=== PATIENT | female | born 1940 | race African-American/Black ===

== ENCOUNTER 2017-11-19 14:12 | Emergency (ER) | payer MEDICARE, OTHER ==
[2017-11-19] MEDS ORDERED: ASPIRIN 81 MG TABLET, CHEWABLE PO ONE (16:02)
--- NOTE | 2017-11-19 16:02 | ER Document Report ---
ED Medical Screen (RME) - General Chief Complaint: Chest Congestion Stated Complaint: BODY PAIN Time Seen by Provider: 11/19/17 15:58 Mode of Arrival: Wheelchair Information source: Patient Notes: 77-year-old female presents with very vague complaints, patient notes cramping in her upper abdomen, feeling strange in her hands back with stiffness of her bilateral lower extremities. She denies any chest pain shortness of breath I have greeted and performed a rapid initial assessment of this patient. A comprehensive ED assessment and evaluation of the patient, analysis of test results and completion of the medical decision making process will be conducted by additional ED providers. PHYSICAL EXAMINATION: GENERAL: Well-appearing, well-nourished and in no acute distress. HEAD: Atraumatic, normocephalic. EYES: Pupils equal round extraocular movements intact, conjunctiva are normal. ENT: Nares patent NECK: Normal range of motion LUNGS: No respiratory distress patient baseline nasal cannula Musculoskeletal: Normal range of motion NEUROLOGICAL: Normal speech, normal gait. PSYCH: Normal mood, normal affect. SKIN: Warm, Dry, normal turgor, no rashes or lesions noted. TRAVEL OUTSIDE OF THE [place] IN LAST 30 DAYS: No - Related Data Allergies/Adverse Reactions: metronidazole [From Flagyl] Allergy (Verified 11/19/17 14:15) Metronidazole HCl [From Flagyl] Allergy (Verified 11/19/17 14:15) Past Medical History - Social History Frequency of alcohol use: Rare Drug Abuse: None - Past Medical History Cardiac Medical History: Reports: Hx Congestive Heart Failure, Hx Hypertension Pulmonary Medical History: Reports: Hx COPD, Hx Pneumonia Endocrine Medical History: Reports: Hx Diabetes Mellitus Type 1, Hx Diabetes Mellitus Type 2 Renal/ Medical History: Denies: Hx Peritoneal Dialysis Past Surgical History: Reports: Hx Appendectomy, Hx Cardiac Surgery - tumor left ventricle, Hx Hysterectomy - partial - Immunizations Hx Diphtheria, Pertussis, Tetanus Vaccination: No Physical Exam - Vital signs Vitals: Temp Pulse Resp BP Pulse Ox 99.0 F 104 H 18 149/88 H 97 11/19/17 14:17 11/19/17 14:17 11/19/17 14:17 11/19/17 14:17 11/19/17 14:17 Course - Vital Signs Vital signs: Temp Pulse Resp BP Pulse Ox 99.0 F 104 H 18 149/88 H 97 11/19/17 14:17 11/19/17 14:17 11/19/17 14:17 11/19/17 14:17 11/19/17 14:17
--- NOTE | 2017-11-19 16:36 | RADIOLOGY REPORT (SQ) ---
EXAM DESCRIPTION: CHEST SINGLE VIEW COMPLETED DATE/TIME: 11/19/2017 4:19 pm REASON FOR STUDY: sob COMPARISON: Chest films 02/28/2013, 02/20/2013, 03/19/2012 EXAM PARAMETERS: NUMBER OF VIEWS: One view. TECHNIQUE: Single frontal radiographic view of the chest acquired. RADIATION DOSE: NA LIMITATIONS: None. FINDINGS: LUNGS AND PLEURA: Bandlike atelectasis just above the right hemidiaphragm. No fluffy alveolar infiltrates worrisome for edema or pneumonia. No pleural effusion. No pneumothor ax. MEDIASTINUM AND HILAR STRUCTURES: No masses. Contour normal. HEART AND VASCULAR STRUCTURES: Heart normal in size. Normal vasculature. BONES: No acute findings. HARDWARE: Old sternal hardware from prior sternotomy. OTHER: No other significant finding. IMPRESSION: Right basilar atelectasis TECHNICAL DOCUMENTATION: JOB ID: [id number] [email or web address]- All Rights Reserved
[2017-11-19 16:59] LABS: ABSOLUTE BASOPHILS # (AUTO) 0.1 10^3/uL (0.0-0.2); ABSOLUTE EOSINOPHILS # (AUTO) 0.1 10^3/uL (0.0-0.6); ABSOLUTE MONOCYTES (AUTO) 0.6 10^3/uL (0.1-1.4); ABSOLUTE NEUT (AUTO) 3.8 10^3/uL (1.7-8.2); BASOPHILS % (AUTO) 1.2 % (0-2); EOSINOPHILS % (AUTO) 1.6 % (0-6); HEMATOCRIT 40.1 % (36.0-47.0); HEMOGLOBIN 13.1 g/dL (12.0-15.5); LYMPHOCYTES % (AUTO) 30.8 % (13-45); MEAN CORPUSCULAR HEMOGLOBIN 27.7 pg (27.0-33.4); MEAN CORPUSCULAR HGB CONC 32.8 g/dL (32.0-36.0); MEAN CORPUSCULAR VOLUME 85 fl (80-97); MONOCYTES % (AUTO) 8.4 % (3-13); PLATELET COUNT 252 10^3/uL (150-450); RED BLOOD COUNT 4.75 10^6/uL (3.72-5.28); RED CELL DISTRIBUTION WIDTH 14.1 % (11.5-14.0); TOTAL CELLS COUNTED % (AUTO) 100 %; WHITE BLOOD COUNT 6.6 10^3/uL (4.0-10.5)
[2017-11-19 17:22] LABS: ALANINE AMINOTRANSFERASE 21 U/L (9-52); ALBUMIN 4.4 g/dL (3.5-5.0); ALKALINE PHOSPHATASE 94 U/L (38-126); ANION GAP 9 (5-19); ASPARTATE AMINO TRANSFERASE 18 U/L (14-36); BILIRUBIN,DIRECT 0.1 mg/dL (0.0-0.4); BILIRUBIN,TOTAL 0.3 mg/dL (0.2-1.3); BLOOD UREA NITROGEN 26 mg/dL (7-20); CALCIUM 10.2 mg/dL (8.4-10.2); CARBON DIOXIDE 31 mmol/L (22-30); CHLORIDE 99 mmol/L (98-107); CREATINE KINASE 79 U/L (30-135); GLUCOSE 355 mg/dL (75-110); POTASSIUM 4.8 mmol/L (3.6-5.0); TOTAL PROTEIN 7.3 g/dL (6.3-8.2)
[2017-11-19 17:33] LABS: CREATINE KINASE MB 1.07 ng/mL (<4.55)
[2017-11-19 17:34] LABS: TROPONIN I < 0.012 ng/mL
--- NOTE | 2017-11-19 22:38 | EKG REPORT ---
SEVERITY:- OTHERWISE NORMAL ECG - SINUS TACHYCARDIA : Confirmed by: Juan Manuel Gallegos 19-Nov-2017 22:38:08
[2017-11-19 23:21] LABS: APPEARANCE,URINE CLEAR; BILIRUBIN,URINE NEGATIVE (NEGATIVE); COLOR,URINE YELLOW; GLUCOSE, URINE >=500 mg/dL (NEGATIVE); KETONES,URINE NEGATIVE (NEGATIVE); LEUKOCYTE ESTERASE,URINE NEGATIVE (NEGATIVE); NITRITE,URINE NEGATIVE (NEGATIVE); PROTEIN,URINE 30 mg/dL (NEGATIVE); UROBILINOGEN,URINE NEGATIVE mg/dL (<2.0)
--- NOTE | 2017-11-19 23:39 | ER Document Report ---
ED General - General Chief Complaint: Chest Congestion Stated Complaint: BODY PAIN Time Seen by Provider: 11/19/17 15:58 Mode of Arrival: Wheelchair Information source: Patient TRAVEL OUTSIDE OF THE [place] IN LAST 30 DAYS: No - HPI Patient complains to provider of: body aches Onset: Just prior to arrival Onset/Duration: Gradual Quality of pain: No pain Associated symptoms: None Exacerbated by: Denies Similar symptoms previously: No - Related Data Allergies/Adverse Reactions: metronidazole [From Flagyl] Allergy (Verified 11/19/17 14:15) Metronidazole HCl [From Flagyl] Allergy (Verified 11/19/17 14:15) Past Medical History - General Information source: Patient, [facility] - Social History Smoking Status: Never Smoker Frequency of alcohol use: Rare Drug Abuse: None Lives with: Family - son Family History: Reviewed & Not Pertinent Patient has suicidal ideation: No Patient has homicidal ideation: No - Past Medical History Cardiac Medical History: Reports: Hx Congestive Heart Failure, Hx Hypertension Pulmonary Medical History: Reports: Hx COPD, Hx Pneumonia Endocrine Medical History: Reports: Hx Diabetes Mellitus Type 1, Hx Diabetes Mellitus Type 2 Renal/ Medical History: Denies: Hx Peritoneal Dialysis Malignancy Medical History: Reports: None Musculoskeltal Medical History: Reports None Past Surgical History: Reports: Hx Appendectomy, Hx Cardiac Surgery - tumor left ventricle, Hx Hysterectomy - Immunizations Hx Diphtheria, Pertussis, Tetanus Vaccination: No Hx Pneumococcal Vaccination: 10/12/05 Review of Systems - Review of Systems Constitutional: Chills EENT: No symptoms reported Cardiovascular: No symptoms reported Respiratory: No symptoms reported Gastrointestinal: Constipation Genitourinary: No symptoms reported Female Genitourinary: No symptoms reported Musculoskeletal: No symptoms reported Skin: No symptoms reported Hematologic/Lymphatic: No symptoms reported Neurological/Psychological: No symptoms reported Physical Exam - Vital signs Vitals: Temp Pulse Resp BP Pulse Ox 99.0 F 104 H 18 149/88 H 97 11/19/17 14:17 11/19/17 14:17 11/19/17 14:17 11/19/17 14:17 11/19/17 14:17 - Notes Notes: PHYSICAL EXAMINATION: GENERAL: Well-appearing, well-nourished and in no acute distress. HEAD: Atraumatic, normocephalic. EYES: Pupils equal round and reactive to light, extraocular movements intact, conjunctiva are normal. ENT: Nares patent, oropharynx clear without exudates. Moist mucous membranes. NECK: Normal range of motion, supple without lymphadenopathy LUNGS: Breath sounds clear to auscultation bilaterally and equal. No wheezes rales or rhonchi. HEART: Regular rate and rhythm without murmurs ABDOMEN: Soft, nontender, nondistended abdomen. No guarding, no rebound. No masses appreciated. + BS. Female : deferred Musculoskeletal: Normal range of motion, +1 pitting edema. No cyanosis. NEUROLOGICAL: Cranial nerves grossly intact. Normal speech. Normal sensory, motor exams. PSYCH: Normal mood, normal affect. SKIN: Warm, Dry, normal turgor, no rashes or lesions noted. Course - Re-evaluation Re-evalutation: 11/19/17 23:37 Labs- All tests 24 hr 11/19/17 11/19/17 11/19/17 16:37 16:37 16:37 WBC 6.6 RBC 4.75 Hgb 13.1 Hct 40.1 MCV 85 MCH 27.7 MCHC 32.8 RDW 14.1 H Plt Count 252 Seg Neutrophils % 58.0 Lymphocytes % 30.8 Monocytes % 8.4 Eosinophils % 1.6 Basophils % 1.2 Absolute Neutrophils 3.8 Absolute Lymphocytes 2.0 Absolute Monocytes 0.6 Absolute Eosinophils 0.1 Absolute Basophils 0.1 Sodium 139.0 Potassium 4.8 Chloride 99 Carbon Dioxide 31 H Anion Gap 9 BUN 26 H Creatinine 1.30 H Est GFR ( Amer) 48 L Est GFR (Non-Af Amer) 40 L Glucose 355 H POC Glucose Calcium 10.2 Total Bilirubin 0.3 Direct Bilirubin 0.1 Neonat Total Bilirubin Not Reportable Neonat Direct Bilirubin Not Reportable Neonat Indirect Bili Not Reportable AST 18 ALT 21 Alkaline Phosphatase 94 Creatine Kinase 79 CK-MB (CK-2) 1.07 Troponin I < 0.012 Total Protein 7.3 Albumin 4.4 Urine Color Urine Appearance Urine pH Ur Specific [place] Urine Protein Urine Glucose (UA) Urine Ketones Urine Blood Urine Nitrite Urine Bilirubin Urine Urobilinogen Ur Leukocyte Esterase Urine WBC (Auto) Urine RBC (Auto) U Hyaline Cast (Auto) Urine Bacteria (Auto) Squamous Epi Cells Auto Urine Mucus (Auto) Urine Ascorbic Acid 11/19/17 11/19/17 11/19/17 20:34 22:14 22:32 WBC RBC Hgb Hct MCV MCH MCHC RDW Plt Count Seg Neutrophils % Lymphocytes % Monocytes % Eosinophils % Basophils % Absolute Neutrophils Absolute Lymphocytes Absolute Monocytes Absolute Eosinophils Absolute Basophils Sodium Potassium Chloride Carbon Dioxide Anion Gap BUN Creatinine Est GFR ( Amer) Est GFR (Non-Af Amer) Glucose POC Glucose 293 H Calcium Total Bilirubin Direct Bilirubin Neonat Total Bilirubin Neonat Direct Bilirubin Neonat Indirect Bili AST ALT Alkaline Phosphatase Creatine Kinase CK-MB (CK-2) Troponin I 0.014 Total Protein Albumin Urine Color YELLOW Urine Appearance CLEAR Urine pH 5.0 Ur Specific [place] 1.020 Urine Protein 30 H Urine Glucose (UA) >=500 H Urine Ketones NEGATIVE Urine Blood NEGATIVE Urine Nitrite NEGATIVE Urine Bilirubin NEGATIVE Urine Urobilinogen NEGATIVE Ur Leukocyte Esterase NEGATIVE Urine WBC (Auto) 0 Urine RBC (Auto) 1 U Hyaline Cast (Auto) 7 Urine Bacteria (Auto) TRACE Squamous Epi Cells Auto 5 Urine Mucus (Auto) RARE Urine Ascorbic Acid NEGATIVE Chest X-Ray 11/19/17 16:02 IMPRESSION: Right basilar atelectasis - Vital Signs Vital signs: Temp Pulse Resp BP Pulse Ox 97.7 F 99 18 127/86 H 100 11/19/17 20:38 11/19/17 20:38 11/19/17 14:17 11/19/17 20:38 11/19/17 20:38 - Laboratory Result Diagrams: 11/19/17 16:37 11/19/17 16:37 Laboratory results interpreted by me: 11/19/17 11/19/17 11/19/17 16:37 16:37 22:14 RDW 14.1 H Carbon Dioxide 31 H BUN 26 H Creatinine 1.30 H Est GFR ( Amer) 48 L Est GFR (Non-Af Amer) 40 L Glucose 355 H POC Glucose 293 H Urine Protein Urine Glucose (UA) 11/19/17 22:32 RDW Carbon Dioxide BUN Creatinine Est GFR ( Amer) Est GFR (Non-Af Amer) Glucose POC Glucose Urine Protein 30 H Urine Glucose (UA) >=500 H - EKG Interpretation by Me EKG shows normal: Sinus rhythm Rate: Tachycardia - 106 When compared to previous EKG there are: No significant change Discharge - Discharge Clinical Impression: Uncontrolled diabetes mellitus Condition: Stable Disposition: HOME, SELF-CARE Instructions: Diabetes ([facility]) Additional Instructions: Follow up with your physician tomorrow for further care or return to the ED IMMEDIATELY if symptoms worsen or new concerns occur. If you cannot afford to follow up with your primary care physician a list of low cost clinics have been provided at the end of your discharge papers as well.
[2017-11-20 01:49] VITALS: BP 151/73
== END 2017-11-20 01:49 | disposition home or self-care (01) ==
LOC: ER 14:12
DX: E11.8 Type 2 diabetes mellitus with unspecified complications (principal); R09.89 Other specified symptoms and signs involving the circulatory and respiratory systems; R68.83 Chills (without fever); K59.00 Constipation, unspecified; R52 Pain, unspecified; I10 Essential (primary) hypertension; J44.9 Chronic obstructive pulmonary disease, unspecified; R00.0 Tachycardia, unspecified; J98.11 Atelectasis; Z88.1 Allergy status to other antibiotic agents
CPT/HCPCS: 93005; 99284; 36415; 82553; 82962; 82550; 85025; 80053; 81001; 84484; 71045; 93010; A9270

== ENCOUNTER 2018-12-25 21:36 | Observation (INO) | payer MEDICARE, OTHER ==
[2018-12-25] MEDS ORDERED: ASPIRIN 81 MG TABLET, CHEWABLE PO ONE (22:39)
--- NOTE | 2018-12-25 22:41 | ER Document Report ---
ED General - General Chief Complaint: Numbness Stated Complaint: NUMBNESS Time Seen by Provider: 12/25/18 22:30 Notes: Patient is a 78-year-old female that comes to the emergency department for chief complaint of an episode that happened 30 minutes prior to arrival where she was sitting and watching television and suddenly started feeling a heaviness in her chest and in both legs, she states they almost felt "numb" like with a "or not getting enough blood". She also states that there was a discomfort in her chest. Symptoms were equal in both legs. She denies any symptoms in her arms, she denies focal weakness, she denies tingling sensation. She denies headache, visual changes, vomiting, fever/chills, abdominal pain. She states she still has a vague discomfort over her chest but her legs feel better. She denies history of IA, she states she was told she had a TIA once in the past, she is on aspirin, she is medicated for diabetes, hypertension, COPD. She lives at home with her family, uses a walker to get around. TRAVEL OUTSIDE OF THE [place] IN LAST 30 DAYS: No - Related Data Allergies/Adverse Reactions: metronidazole [From Flagyl] Allergy (Verified 12/25/18 21:49) Metronidazole HCl [From Flagyl] Allergy (Verified 12/25/18 21:49) Past Medical History - General Information source: Patient - Social History Smoking Status: Never Smoker Frequency of alcohol use: None Drug Abuse: None Lives with: Family Family History: Reviewed & Not Pertinent - Past Medical History Cardiac Medical History: Reports: Hx Congestive Heart Failure, Hx Hypertension Pulmonary Medical History: Reports: Hx COPD, Hx Pneumonia Endocrine Medical History: Reports: Hx Diabetes Mellitus Type 1, Hx Diabetes Mellitus Type 2 Renal/ Medical History: Denies: Hx Peritoneal Dialysis Past Surgical History: Reports: Hx Appendectomy, Hx Cardiac Surgery - tumor left ventricle, Hx Hysterectomy - Immunizations Hx Diphtheria, Pertussis, Tetanus Vaccination: No Hx Pneumococcal Vaccination: 10/12/05 Review of Systems - Review of Systems Constitutional: See HPI EENT: No symptoms reported Cardiovascular: See HPI Respiratory: No symptoms reported Gastrointestinal: No symptoms reported Genitourinary: No symptoms reported Female Genitourinary: No symptoms reported Musculoskeletal: No symptoms reported Skin: No symptoms reported Hematologic/Lymphatic: No symptoms reported Neurological/Psychological: See HPI Physical Exam - Vital signs Vitals: Resp Pulse Ox 18 97 12/25/18 22:10 12/25/18 22:10 - Notes Notes: GENERAL: Alert, interacts well. No acute distress. HEAD: Normocephalic, atraumatic. EYES: Pupils equal, round, and reactive to light. Extraocular movements intact. ENT: Oral mucosa moist, tongue midline. Oropharynx unremarkable. Airway patent. Nares patent, no nasal septal hematoma, TM's intact. NECK: Full range of motion. Supple. Trachea midline. LUNGS: Clear to auscultation bilaterally, no wheezes, rales, or rhonchi. No respiratory distress. HEART: Regular rate and rhythm. No murmur ABDOMEN: Soft, non-tender. Non-distended. Bowel sounds present in all 4 quadrants. GENITOURINARY: Deferred EXTREMITIES: Moves all 4 extremities spontaneously. No edema, normal radial and dorsalis pedis pulses bilaterally. No cyanosis. BACK: no cervical, thoracic, lumbar midline tenderness. No saddle anesthesia, normal distal neurovascular exam. NEUROLOGICAL: Alert and oriented x3. Normal speech. [cranial nerves II through XII grossly intact]. PSYCH: Normal affect, normal mood. SKIN: Warm, dry, normal turgor. No rashes or lesions noted. Course - Re-evaluation Re-evalutation: EKG shows sinus rhythm at a rate of 82, no T wave inversions or ST segment changes in consecutive leads. PACs are present. First-degree block present with a W[place] of 220. QTC is 468. Chest x-ray is unremarkable. Troponin is negative. CBC and chemistry unremarkable. Patient with vague weakness complaints in her legs but she has no neurological deficits on examination and no current complaints of weakness in her legs. On reevaluation after receiving aspirin her chest pain is resolved. Discussed with patient. Because of her advanced age, multiple comorbidities, and chest pain will discuss with hospitalist for cardiac rule out. Patient's blood pressure is trending upwards, however she is not currently in any pain. She denies headache. I spoke with Dr. Carbone, on-call for Dr. Myers, patient's provider. He will admit to telemetry, recommends treatment of blood pressure now. Given dose of labetalol. - Vital Signs Vital signs: Temp Pulse Resp BP Pulse Ox 97.8 F 70 19 150/72 H 99 12/26/18 05:13 12/26/18 05:13 12/26/18 05:13 12/26/18 05:13 12/26/18 05:13 - Laboratory Result Diagrams: 12/25/18 22:45 12/25/18 22:45 Laboratory results interpreted by me: 12/25/18 12/25/18 22:45 22:45 RDW 14.7 H Carbon Dioxide 31 H BUN 38 H Creatinine 1.32 H Est GFR ( Amer) 47 L Est GFR (Non-Af Amer) 39 L Glucose 169 H Discharge - Discharge Clinical Impression: Uncontrolled hypertension Chest pain Qualifiers: Chest pain type: unspecified Qualified Code(s): R07.9 - Chest pain, unspecified Condition: Stable Disposition: ADMITTED OBSERVATION Admitting Provider: Raf Myers Unit Admitted: Telemetry
[2018-12-25 22:56] LABS: ABSOLUTE EOSINOPHILS # (AUTO) 0.1 10^3/uL (0.0-0.6); ABSOLUTE LYMPHOCYTES (AUTO) 2.2 10^3/uL (0.5-4.7); ABSOLUTE MONOCYTES (AUTO) 0.7 10^3/uL (0.1-1.4); ABSOLUTE NEUT (AUTO) 3.4 10^3/uL (1.7-8.2); BASOPHILS % (AUTO) 0.2 % (0-2); EOSINOPHILS % (AUTO) 1.2 % (0-6); HEMATOCRIT 41.6 % (36.0-47.0); HEMOGLOBIN 13.8 g/dL (12.0-15.5); LYMPHOCYTES % (AUTO) 34.6 % (13-45); MEAN CORPUSCULAR HGB CONC 33.1 g/dL (32.0-36.0); MEAN CORPUSCULAR VOLUME 85 fl (80-97); MONOCYTES % (AUTO) 10.3 % (3-13); PLATELET COUNT 230 10^3/uL (150-450); RED BLOOD COUNT 4.91 10^6/uL (3.72-5.28); RED CELL DISTRIBUTION WIDTH 14.7 % (11.5-14.0); SEGMENTED NEUTROPHILS % (AUTO) 53.7 % (42-78); TOTAL CELLS COUNTED % (AUTO) 100 %; WHITE BLOOD COUNT 6.4 10^3/uL (4.0-10.5)
[2018-12-25 23:10] LABS: ALANINE AMINOTRANSFERASE 19 U/L (9-52); ALBUMIN 3.8 g/dL (3.5-5.0); ALKALINE PHOSPHATASE 90 U/L (38-126); ANION GAP 8 (5-19); ASPARTATE AMINO TRANSFERASE 17 U/L (14-36); BILIRUBIN,DIRECT 0.3 mg/dL (0.0-0.4); BILIRUBIN,TOTAL 0.3 mg/dL (0.2-1.3); BLOOD UREA NITROGEN 38 mg/dL (7-20); CALCIUM 9.5 mg/dL (8.4-10.2); CARBON DIOXIDE 31 mmol/L (22-30); CHLORIDE 100 mmol/L (98-107); GLUCOSE 169 mg/dL (75-110); POTASSIUM 4.1 mmol/L (3.6-5.0); SODIUM 139.2 mmol/L (137-145); TOTAL PROTEIN 7.1 g/dL (6.3-8.2)
--- NOTE | 2018-12-26 00:01 | RADIOLOGY REPORT (SQ) ---
EXAM DESCRIPTION: XR CHEST 1 VIEW COMPLETED DATE/TME: 12/25/2018 22:39 CLINICAL HISTORY: 78 years, Female, chest pain Comparison: None FINDINGS: No focal lung consolidation other than right basilar atelectasis. Lung volumes are decreased. No pleural effusion. No pneumothorax. Cardiac and mediastinal silhouette is unremarkable. No acute osseous abnormality. Soft tissues are unremarkable. IMPRESSION: No acute findings. No focal lung consolidation.
[2018-12-26] MEDS ORDERED: LABETALOL HCL INJ 20 MG/4 ML DISP.SYRIN IV ONE ×2 (00:34→02:01)
[2018-12-26] MEDS ORDERED: ACETAMINOPHEN 325 MG TABLET PO PRN (00:35)
[2018-12-26] MEDS ORDERED: DEXTROSE 50%-WATER 25 GM/50 ML DISP.SYRIN IV PRN ×2 (00:39)
[2018-12-26] MEDS ORDERED: DEXTROSE 40% GEL 15 GM TUBE PO PRN ×2 (00:39)
[2018-12-26] MEDS ORDERED: GLUCAGON,HUMAN RECOMB 1 MG INJ IM PRN (00:39)
[2018-12-26 02:44] LABS: CREATINE KINASE MB 1.07 ng/mL (<4.55); TROPONIN I 0.016 ng/mL
[2018-12-26] MEDS: PANTOPRAZOLE SODIUM 20 MG TABLET.DR PO SCH (07:14)
[2018-12-26 08:27] LABS: CREATINE KINASE MB 1.23 ng/mL (<4.55); TROPONIN I 0.015 ng/mL
--- NOTE | 2018-12-26 08:30 | EKG REPORT ---
SEVERITY:- ABNORMAL ECG - SINUS RHYTHM ATRIAL PREMATURE COMPLEX FIRST DEGREE AV BLOCK : Confirmed by: Rafael Aldrich MD 26-Dec-2018 08:30:05
--- NOTE | 2018-12-26 10:44 | PDOC H&P ---
History of Present Illness Admission Date/PCP: 12/26/18 00:51 ALE RODRIGUEZ MD Patient complains of: Numbness in the chest pain History of Present Illness: KACI BA is a 78 year old female This is a 78-year-old female of Dr. Rodriguez present in the emergency department patient started feeling numbness all over the body especially from the leg and feeling chest discomfort and patients came to the emergency department where initial workup was negative and ER physicians called to rule out any acute coronary syndromes When I saw the patient's patient is denied any chest pain to than any shortness of the breath Patient is denied any tingling no numbness no weakness Patients have a ongoing problem with the leg and he talked to the Dr. Rodriguez about the leg issues and suggest arthritis and possible neuropathy patient have a history of the left ventricular tumor removed It was in [place] several years back but denied any heart problems denied any stroke in the past Patient initial EKG and a cardiac workup is all negative Past Medical History Cardiac Medical History: Reports: Congestive Heart Failure, Hypertension Pulmonary Medical History: Reports: Chronic Obstructive Pulmonary Disease (COPD), Pneumonia Endocrine Medical History: Reports: Diabetes Mellitus Type 2 GI Medical History: Reports: Gastroesophageal Reflux Disease Musculoskeltal Medical History: Reports: Arthritis Past Surgical History Past Surgical History: Reports: Appendectomy, Hysterectomy, Other - Heart surgery Social History Information Source: Patient Lives with: Family Smoking Status: Never Smoker Frequency of Alcohol Use: Occasional Hx Recreational Drug Use: No Family History Family History: Reviewed & Not Pertinent Parental Family History Reviewed: Yes Children Family History Reviewed: Yes Sibling(s) Family History Reviewed.: Yes Medication/Allergy Home Medications: Aspirin [Ecotrin 81 mg EC Tablet] 81 mg PO DAILY 03/19/12 Bumetanide [Bumex 2 mg Tablet] 2 mg PO QAM 03/19/12 Insulin Lispro Protamin/Lispro [Humalog Mix 75-25 Kwikpen] 34 unit SQ QHS 03/19/12 Insulin Lispro Protamin/Lispro [Humalog Mix 75-25 Kwikpen] 46 unit SQ QAM 03/19/12 Levothyroxine Sodium [Tirosint] 75 mcg PO QAM 03/19/12 Pravastatin Sodium [Pravachol] 40 mg PO QHS 03/19/12 Albuterol Sulfate [Ventolin HFA MDI 18 GM] 2 puff IH Q4HP PRN #17 gm 02/20/13 Amlodipine Besylate 1 tab PO DAILY 02/20/13 Nebivolol HCl [Bystolic] 10 mg PO DAILY 02/20/13 Vitamin E 400 unit PO DAILY 02/20/13 Benzonatate [Tessalon Perles 100 mg Capsule] 100 mg PO Q8 PRN #0 capsule 03/03/13 Diclofenac Potassium [Cataflam] 50 mg PO TID PRN #0 03/03/13 Guaifenesin [Mucinex] 600 mg PO BID PRN #0 tablet.sa 03/03/13 Ipratropium/Albuterol Sulfate [Duoneb 2.5-0.5 Mg/3 Ml Soln] 3 ml IH Q6HP PRN 03/03/13 Levofloxacin [Levaquin 750 mg Tablet] 750 mg PO DAILY #5 tablet 03/03/13 Allergies/Adverse Reactions: metronidazole [From Flagyl] Allergy (Verified 12/25/18 21:49) Metronidazole HCl [From Flagyl] Allergy (Verified 12/25/18 21:49) Review of Systems Constitutional: ABSENT: chills, fever(s), headache(s), weight gain, weight loss Eyes: ABSENT: visual disturbances Ears: ABSENT: hearing changes Cardiovascular: PRESENT: chest pain. ABSENT: dyspnea on exertion, edema, orthropnea, palpitations Respiratory: ABSENT: cough, hemoptysis Gastrointestinal: ABSENT: abdominal pain, constipation, diarrhea, hematemesis, h ematochezia, nausea, vomiting Genitourinary: ABSENT: dysuria, hematuria Musculoskeletal: ABSENT: joint swelling Integumentary: ABSENT: rash, wounds Neurological: PRESENT: numbness. ABSENT: abnormal gait, abnormal speech, confusion, dizziness, focal weakness, syncope Psychiatric: ABSENT: anxiety, depression, homidical ideation, suicidal ideation Endocrine: ABSENT: cold intolerance, heat intolerance, menstrual abnormalities, polydipsia, polyuria Hematologic/Lymphatic: ABSENT: easy bleeding, easy bruising, lymphadenopathy Physical Exam Vital Signs: Temp Pulse Resp BP Pulse Ox 98.0 F 75 17 140/83 H 98 12/26/18 08:27 12/26/18 08:27 12/26/18 08:27 12/26/18 08:27 12/26/18 08:27 Intake & Output 12/25/18 12/26/18 12/27/18 06:59 06:59 06:59 Intake Total 75 Balance 75 Weight 98.43 kg General appearance: PRESENT: no acute distress, well-developed, well-nourished Head exam: PRESENT: atraumatic, normocephalic Eye exam: PRESENT: conjunctiva pink, EOMI, PERRLA. ABSENT: scleral icterus Ear exam: PRESENT: normal external ear exam Mouth exam: PRESENT: moist, tongue midline Neck exam: PRESENT: full ROM. ABSENT: carotid bruit, JVD, lymphadenopathy, thyromegaly Respiratory exam: PRESENT: clear to auscultation kera Cardiovascular exam: PRESENT: RRR, +S1, +S2. ABSENT: diastolic murmur, rubs, systolic murmur Vascular exam: PRESENT: normal capillary refill GI/Abdominal exam: PRESENT: normal bowel sounds, soft. ABSENT: distended, guarding, mass, organolmegaly, rebound, tenderness Rectal exam: PRESENT: deferred Extremities exam: ABSENT: pedal edema Musculoskeletal exam: PRESENT: ambulatory Neurological exam: PRESENT: alert, awake, oriented to person, oriented to place, oriented to time, oriented to situation, reflexes normal, CN II-XII grossly intact, normal gait. ABSENT: motor sensory deficit Psychiatric exam: PRESENT: appropriate affect, normal mood. ABSENT: homicidal ideation, suicidal ideation Skin exam: PRESENT: dry, intact, warm. ABSENT: cyanosis, rash Results Laboratory Results: 12/25/18 22:45 12/25/18 22:45 12/25/18 12/25/18 22:45 22:45 WBC 6.4 RBC 4.91 Hgb 13.8 Hct 41.6 MCV 85 MCH 28.0 MCHC 33.1 RDW 14.7 H Plt Count 230 Seg Neutrophils % 53.7 Lymphocytes % 34.6 Monocytes % 10.3 Eosinophils % 1.2 Basophils % 0.2 Absolute Neutrophils 3.4 Absolute Lymphocytes 2.2 Absolute Monocytes 0.7 Absolute Eosinophils 0.1 Absolute Basophils 0.0 Sodium 139.2 Potassium 4.1 Chloride 100 Carbon Dioxide 31 H Anion Gap 8 BUN 38 H Creatinine 1.32 H Est GFR ( Amer) 47 L Est GFR (Non-Af Amer) 39 L Glucose 169 H Calcium 9.5 Total Bilirubin 0.3 AST 17 ALT 19 Alkaline Phosphatase 90 Total Protein 7.1 Albumin 3.8 12/25/18 12/26/18 12/26/18 22:45 01:30 01:30 Creatine Kinase 61 CK-MB (CK-2) 1.07 Troponin I < 0.012 0.016 12/26/18 12/26/18 07:38 07:38 Creatine Kinase 76 CK-MB (CK-2) 1.23 Troponin I 0.015 Impressions: Chest X-Ray 12/25/18 22:39 IMPRESSION: No acute findings. No focal lung consolidation. Assessment & Plan - Diagnosis (1) Chest pain Qualifiers: Chest pain type: unspecified Qualified Code(s): R07.9 - Chest pain, unspecified Is this a current diagnosis for this admission?: Yes Plan: Patient has enough risk factors for underlying coronary disease currently denied any chest pain Consult the cardiology for further evaluations while the patient have a history of the questionable left ventricular tumor removed (2) Numbness Is this a current diagnosis for this admission?: Yes Plan: Most likely from the neuropathy We will get the CT of the head to rule out other etiology We will check the vitamin B12 level (3) Hypertension Qualifiers: Hypertension type: essential hypertension Qualified Code(s): I10 - Essential (primary) hypertension Is this a current diagnosis for this admission?: Yes Plan: Continues to current medications (4) Type 2 diabetes mellitus Qualifiers: Diabetes mellitus complication status: with unspecified complications Is this a current diagnosis for this admission?: Yes Plan: cont a current medication a sliding scale (5) Peripheral neuropathy Qualifiers: Peripheral neuropathy type: polyneuropathy, other Qualified Code(s): G62.89 - Other specified polyneuropathies Is this a current diagnosis for this admission?: Yes Plan: Consider start the gabapentin if patient is not taking - Time Time Spent: 30 to 50 Minutes Medications reviewed and adjusted accordingly: Yes Anticipated discharge: Home Within: Other - Inpatient Certification Based on my medical assessment, after consideration of the patient's comorbidities, presenting symptoms, or acuity I expect that the services needed warrant INPATIENT care.: Yes I certify that my determination is in accordance with my understanding of Medicare's requirements for reasonable and necessary INPATIENT services [42 CFR 412.3e].: Yes Medical Necessity: Need Close Monitoring Due to Risk of Patient Decompensation Post Hospital Care: D/C Educator Senior Clinical Documentation - Plan Summary Plan Summary: Admit the patient on a telemetry bed See MD evans
--- NOTE | 2018-12-26 10:55 | PDOC CONSULTATION ---
Consultation Consult Date: 12/26/18 Consult reason:: Chest pain History of Present Illness Admission Date/PCP: 12/26/18 00:51 ALE RODRIGUEZ MD History of Present Illness: KACI BA is a 78 year old female with past medical history of diabetes mellitus, arthritis, history of left ventricular tumor removed in 2007 in the [place] per patient comes in with complaints of chest pain/pressure while she was watching TV last night associated with numbness over her arms and legs. When patient was seen in the ER her blood pressure was elevated. She denies any shortness of breath but does admit to exertional short windedness at times. She claims that because of her arthritis and pain in the legs she is not able to ambulate as much. He lives with her son. She denies history of cigarette smoking or alcohol abuse. Family history is significant for 1 of her brothers having a heart attack at 55 years of age. She denies any dizziness or palpitations or any passing out episodes. Past Medical History Cardiac Medical History: Reports: Congestive Heart Failure, Hypertension Pulmonary Medical History: Reports: Chronic Obstructive Pulmonary Disease (COPD), Pneumonia Endocrine Medical History: Reports: Diabetes Mellitus Type 1, Diabetes Mellitus Type 2, Obesity Musculoskeltal Medical History: Reports: Arthritis Past Surgical History Past Surgical History: Reports: Appendectomy, Hysterectomy Social History Lives with: Family Smoking Status: Never Smoker Frequency of Alcohol Use: Occasional Family History Family History: Reviewed & Not Pertinent, CAD - Brother had a heart attack at 55 years of age. Parental Family History Reviewed: Yes Children Family History Reviewed: No Sibling(s) Family History Reviewed.: Yes Medication/Allergy Home Medications: Aspirin [Ecotrin 81 mg EC Tablet] 81 mg PO DAILY 03/19/12 Bumetanide [Bumex 2 mg Tablet] 2 mg PO QAM 03/19/12 Insulin Lispro Protamin/Lispro [Humalog Mix 75-25 Kwikpen] 34 unit SQ QHS 03/19/12 Insulin Lispro Protamin/Lispro [Humalog Mix 75-25 Kwikpen] 46 unit SQ QAM 03/19/12 Levothyroxine Sodium [Tirosint] 75 mcg PO QAM 03/19/12 Pravastatin Sodium [Pravachol] 40 mg PO QHS 03/19/12 Albuterol Sulfate [Ventolin HFA MDI 18 GM] 2 puff IH Q4HP PRN #17 gm 02/20/13 Amlodipine Besylate 1 tab PO DAILY 02/20/13 Nebivolol HCl [Bystolic] 10 mg PO DAILY 02/20/13 Vitamin E 400 unit PO DAILY 02/20/13 Benzonatate [Tessalon Perles 100 mg Capsule] 100 mg PO Q8 PRN #0 capsule 03/03/13 Diclofenac Potassium [Cataflam] 50 mg PO TID PRN #0 03/03/13 Guaifenesin [Mucinex] 600 mg PO BID PRN #0 tablet.sa 03/03/13 Ipratropium/Albuterol Sulfate [Duoneb 2.5-0.5 Mg/3 Ml Soln] 3 ml IH Q6HP PRN 03/03/13 Levofloxacin [Levaquin 750 mg Tablet] 750 mg PO DAILY #5 tablet 03/03/13 Allergies/Adverse Reactions: metronidazole [From Flagyl] Allergy (Verified 12/25/18 21:49) Metronidazole HCl [From Flagyl] Allergy (Verified 12/25/18 21:49) Review of Systems Cardiovascular: PRESENT: chest pain, dyspnea on exertion Neurological: PRESENT: numbness, weakness Physical Exam Vital Signs: Temp Pulse Resp BP Pulse Ox 98.0 F 75 17 140/83 H 98 12/26/18 08:27 12/26/18 08:27 12/26/18 08:27 12/26/18 08:27 12/26/18 08:27 Intake & Output 12/25/18 12/26/18 12/27/18 06:59 06:59 06:59 Intake Total 75 Balance 75 Weight 98.43 kg General appearance: PRESENT: no acute distress, morbidly obese Head exam: PRESENT: atraumatic, normocephalic Neck exam: PRESENT: full ROM Respiratory exam: PRESENT: clear to auscultation kera Cardiovascular exam: PRESENT: +S1, +S2 Pulses: PRESENT: normal carotid pulses, normal radial pulses, normal dorsalis pedis pul Neurological exam: PRESENT: alert, awake, oriented to time, oriented to situation Results Laboratory Results: 12/25/18 22:45 12/25/18 22:45 12/25/18 12/25/18 22:45 22:45 WBC 6.4 RBC 4.91 Hgb 13.8 Hct 41.6 MCV 85 MCH 28.0 MCHC 33.1 RDW 14.7 H Plt Count 230 Seg Neutrophils % 53.7 Lymphocytes % 34.6 Monocytes % 10.3 Eosinophils % 1.2 Basophils % 0.2 Absolute Neutrophils 3.4 Absolute Lymphocytes 2.2 Absolute Monocytes 0.7 Absolute Eosinophils 0.1 Absolute Basophils 0.0 Sodium 139.2 Potassium 4.1 Chloride 100 Carbon Dioxide 31 H Anion Gap 8 BUN 38 H Creatinine 1.32 H Est GFR ( Amer) 47 L Est GFR (Non-Af Amer) 39 L Glucose 169 H Calcium 9.5 Total Bilirubin 0.3 AST 17 ALT 19 Alkaline Phosphatase 90 Total Protein 7.1 Albumin 3.8 12/25/18 12/26/18 12/26/18 22:45 01:30 01:30 Creatine Kinase 61 CK-MB (CK-2) 1.07 Troponin I < 0.012 0.016 12/26/18 12/26/18 07:38 07:38 Creatine Kinase 76 CK-MB (CK-2) 1.23 Troponin I 0.015 Impressions: Chest X-Ray 12/25/18 22:39 IMPRESSION: No acute findings. No focal lung consolidation. Assessment & Plan - Diagnosis (1) Chest pain Qualifiers: Chest pain type: unspecified Qualified Code(s): R07.9 - Chest pain, unspecified Is this a current diagnosis for this admission?: Yes (2) Hypertension Qualifiers: Hypertension type: essential hypertension Qualified Code(s): I10 - Essential (primary) hypertension Is this a current diagnosis for this admission?: Yes (3) Type 2 diabetes mellitus Qualifiers: Diabetes mellitus complication status: with unspecified complications Is this a current diagnosis for this admission?: Yes - Notes Notes: Reviewed EKG, labs and imaging test. Morbidly obese patient with risk factors for atherosclerotic cardiovascular disease namely age, hypertension, diabetes and obesity admitted with chest pain/pressure with borderline cardiac biomarkers. Will recommend optimization of her medical therapy with resumption of her amlodipine for hypertension and statin therapy for risk factor reduction. Continue aspirin as antiplatelet therapy. Consider adding beta-benton therapy for afterload control. Due to her multiple risk factors for ASCVD will recommend a Lexiscan nuclear stress test to rule out any inducible perfusion defects and a transthoracic echocardiogram to evaluate systolic and diastolic function. Patient educated about plan of care. Dr. Nathalie is going to assume care of patient tomorrow morning and will be supervising her stress test. Her numbness in the legs could be related to diabetic neuropathy and can be worked up as an outpatient. We also screened her for obstructive sleep apnea and she may benefit from an outpatient sleep study at some point. - Time Time Spent: 50 to 70 Minutes
[2018-12-26] MEDS: INSULIN LISPRO 100 UNIT/ML 3 ML VIAL SUBCUT SCH ×3 (11:05→17:11)
[2018-12-26] MEDS: ENOXAPARIN SODIUM INJ 40 MG/0.4 ML DISP.SYRIN SUBCUT SCH (11:06)
--- NOTE | 2018-12-26 13:07 | RADIOLOGY REPORT (SQ) ---
EXAM DESCRIPTION: CT HEAD WITHOUT COMPLETED DATE/TIME: 12/26/2018 12:22 pm REASON FOR STUDY: numbness COMPARISON: MRI 04/08/2018 TECHNIQUE: Axial images acquired through the brain without intravenous contrast. Images reviewed wi th bone, brain and subdural windows. Additional sagittal and coronal reconstructions were generated. Images stored on PACS. All CT scanners at this facility use dose modulation, iterative reconstruction, and/or weight based d osing when appropriate to reduce radiation dose to as low as reasonably achievable (ALARA). [facility]: Dose Right [facility]: CareDose [facility]: Dose Right [facility]: Teradose 4D [facility]: [employer] RADIATION DOSE: CT Rad equipment meets quality standard of care and radiation dose reduction techniq ues were employed. CTDIvol: 53.2 mGy. DLP: 1044 mGy-cm. mGy. LIMITATIONS: None. FINDINGS: VENTRICLES: The ventricles and cortical sulci are appropriate for the patient's age per CEREBRUM: No masses. No hemorrhage. No midline shift. No evidence for acute infarction. Moderate s cattered low density in the white matter most likely chronic small vessel ischemic changes, similar t o prior MRI. . CEREBELLUM: No masses. No hemorrhage. No alteration of density. No evidence for acute infarction. EXTRAAXIAL SPACES: No fluid collections. No masses. ORBITS AND GLOBE: No intra- or extraconal masses. Normal contour of globe without masses. CALVARIUM: No fracture. PARANASAL SINUSES: Follow up versus mucous retention cyst of the anterior right maxillary sinus. Rem ainder of the visualized paranasal sinuses are well aerated. SOFT TISSUES: No mass or hematoma. OTHER: No other significant finding. IMPRESSION: MICROVASCULAR ISCHEMIA AND GENERALIZED ATROPHY. NO ACUTE IMAGING FINDINGS IN THE BRAIN EVIDENCE OF ACUTE STROKE: NO. COMMENT: Quality ID # [id number]: Final reports with documentation of one or more dose reduction techniques (e.g., Automated exposure control, adjustment of the mA and/or kV according to patient size, use of iterative reconstruction technique) TECHNICAL DOCUMENTATION: JOB ID: [id number] [employer]- All Rights Reserved Reading location - IP/workstation name: [email or web address]
[2018-12-26 13:30] LABS: APPEARANCE,URINE CLOUDY; BILIRUBIN,URINE NEGATIVE (NEGATIVE); COLOR,URINE YELLOW; GLUCOSE, URINE >=500 mg/dL (NEGATIVE); KETONES,URINE NEGATIVE (NEGATIVE); LEUKOCYTE ESTERASE,URINE NEGATIVE (NEGATIVE); NITRITE,URINE NEGATIVE (NEGATIVE); PROTEIN,URINE NEGATIVE (NEGATIVE); URINE SPECIFIC GRAVITY 1.017; UROBILINOGEN,URINE NEGATIVE mg/dL (<2.0)
[2018-12-26 15:29] LABS: CREATINE KINASE MB 1.28 ng/mL (<4.55); TROPONIN I 0.013 ng/mL
[2018-12-26] MEDS ORDERED: BISACODYL 5 MG TABEC PO PRN (18:48)
[2018-12-26] MEDS ORDERED: SIMETHICONE 40 MG/0.6 ML DROPS 30ML PO PRN (18:48)
[2018-12-26] MEDS ORDERED: BENZONATATE 100 MG CAPSULE PO PRN (18:48)
[2018-12-26] MEDS: ATORVASTATIN CALCIUM 10 MG TABLET PO SCH (21:27)
[2018-12-26] MEDS: ASPIRIN 325 MG TABLET PO SCH (21:27)
[2018-12-26] MEDS ORDERED: INSULIN DEGLUDEC 36 UNIT SQ SCH (22:00)
[2018-12-26] MEDS ORDERED: (PENDING PHARMACY ID) (Pravastatin Sodium [Pravachol] 40 MG) PO SCH (22:00)
[2018-12-27 05:54] LABS: ABSOLUTE BASOPHILS # (AUTO) 0.1 10^3/uL (0.0-0.2); ABSOLUTE EOSINOPHILS # (AUTO) 0.1 10^3/uL (0.0-0.6); ABSOLUTE LYMPHOCYTES (AUTO) 2.2 10^3/uL (0.5-4.7); ABSOLUTE MONOCYTES (AUTO) 0.6 10^3/uL (0.1-1.4); ABSOLUTE NEUT (AUTO) 2.5 10^3/uL (1.7-8.2); BASOPHILS % (AUTO) 0.9 % (0-2); EOSINOPHILS % (AUTO) 1.5 % (0-6); HEMATOCRIT 42.1 % (36.0-47.0); HEMOGLOBIN 13.9 g/dL (12.0-15.5); LYMPHOCYTES % (AUTO) 40.1 % (13-45); MEAN CORPUSCULAR HGB CONC 32.9 g/dL (32.0-36.0); MEAN CORPUSCULAR VOLUME 85 fl (80-97); MONOCYTES % (AUTO) 11.2 % (3-13); PLATELET COUNT 214 10^3/uL (150-450); RED BLOOD COUNT 4.95 10^6/uL (3.72-5.28); RED CELL DISTRIBUTION WIDTH 14.8 % (11.5-14.0); SEGMENTED NEUTROPHILS % (AUTO) 46.3 % (42-78); TOTAL CELLS COUNTED % (AUTO) 100 %; WHITE BLOOD COUNT 5.4 10^3/uL (4.0-10.5)
[2018-12-27] MEDS: PANTOPRAZOLE SODIUM 20 MG TABLET.DR PO SCH (06:16)
[2018-12-27 06:18] LABS: ANION GAP 9 (5-19); BLOOD UREA NITROGEN 31 mg/dL (7-20); CALCIUM 9.5 mg/dL (8.4-10.2); CARBON DIOXIDE 29 mmol/L (22-30); CHLORIDE 102 mmol/L (98-107); GLUCOSE 170 mg/dL (75-110); POTASSIUM 4.3 mmol/L (3.6-5.0); SODIUM 139.7 mmol/L (137-145)
[2018-12-27] MEDS ORDERED: SIMETHICONE 80 MG TAB.CHEW PO PRN (07:26)
[2018-12-27] MEDS: INSULIN LISPRO 100 UNIT/ML 3 ML VIAL SUBCUT SCH ×3 (08:56→17:21)
[2018-12-27] MEDS ORDERED: (PENDING PHARMACY ID) (Empagliflozin [Jardiance] 25 MG) PO SCH (10:00)
[2018-12-27] MEDS ORDERED: (PENDING PHARMACY ID) (Losartan/Hydrochlorothiazide [Losartan-Hctz 100-25 Mg Tab] 1 TAB) PO SCH (10:00)
[2018-12-27] MEDS: HYDROCHLOROTHIAZIDE 25 MG TABLET PO SCH (10:40)
[2018-12-27] MEDS: ENOXAPARIN SODIUM INJ 40 MG/0.4 ML DISP.SYRIN SUBCUT SCH (10:41)
[2018-12-27] MEDS: LOSARTAN POTASSIUM 50 MG TABLET PO SCH (10:41)
--- NOTE | 2018-12-27 21:26 | PDOC PROGRESS REPORT ---
Subjective Progress Note for:: 12/27/18 Subjective:: Patient was admitted yesterday for evaluation of chest pain, she has multiple risk factors for ischemic heart disease, she will be scheduled for a pharmacological stress test in the morning Reason For Visit: CHEST PAIN Physical Exam Vital Signs: Temp Pulse Resp BP Pulse Ox 98.9 F 87 15 151/86 H 95 12/27/18 19:35 12/27/18 19:35 12/27/18 19:35 12/27/18 19:35 12/27/18 19:35 Intake & Output 12/26/18 12/27/18 12/28/18 06:59 06:59 06:59 Intake Total 75 1200 500 Output Total 300 Balance 75 900 500 Weight 98.43 kg 79.9 kg General appearance: PRESENT: no acute distress Eye exam: PRESENT: PERRLA Respiratory exam: PRESENT: clear to auscultation kera Cardiovascular exam: PRESENT: +S1, +S2 GI/Abdominal exam: PRESENT: soft Neurological exam: PRESENT: alert Results Laboratory Results: 12/27/18 04:57 12/27/18 04:57 12/27/18 12/27/18 04:57 04:57 WBC 5.4 RBC 4.95 Hgb 13.9 Hct 42.1 MCV 85 MCH 28.0 MCHC 32.9 RDW 14.8 H Plt Count 214 Seg Neutrophils % 46.3 Lymphocytes % 40.1 Monocytes % 11.2 Eosinophils % 1.5 Basophils % 0.9 Absolute Neutrophils 2.5 Absolute Lymphocytes 2.2 Absolute Monocytes 0.6 Absolute Eosinophils 0.1 Absolute Basophils 0.1 Sodium 139.7 Potassium 4.3 Chloride 102 Carbon Dioxide 29 Anion Gap 9 BUN 31 H Creatinine 1.18 Est GFR ( Amer) 53 L Est GFR (Non-Af Amer) 44 L Glucose 170 H Calcium 9.5 12/25/18 12/26/18 12/26/18 22:45 01:30 01:30 Creatine Kinase 61 CK-MB (CK-2) 1.07 Troponin I < 0.012 0.016 12/26/18 12/26/18 12/26/18 07:38 07:38 14:48 Creatine Kinase 76 90 CK-MB (CK-2) 1.23 Troponin I 0.015 12/26/18 14:48 Creatine Kinase CK-MB (CK-2) 1.28 Troponin I 0.013 Impressions: Chest X-Ray 12/25/18 22:39 IMPRESSION: No acute findings. No focal lung consolidation. Head CT 12/26/18 00:00 IMPRESSION: MICROVASCULAR ISCHEMIA AND GENERALIZED ATROPHY. NO ACUTE IMAGING FINDINGS IN THE BRAIN EVIDENCE OF ACUTE STROKE: NO. Assessment & Plan - Diagnosis (1) T2DM (type 2 diabetes mellitus) Qualifiers: Diabetes mellitus swing grinder insulin use: with group home use Diabetes mellitus complication status: with neurologic complications Diabetes mellitus complication detail: with polyneuropathy Qualified Code(s): E11.42 - Type 2 diabetes mellitus with diabetic polyneuropathy; Z79.4 - prison (current) use of insulin Is this a current diagnosis for this admission?: Yes (2) Chest pain Qualifiers: Chest pain type: unspecified Qualified Code(s): R07.9 - Chest pain, unspec ified Is this a current diagnosis for this admission?: Yes Plan: Patient is scheduled for pharmacologic stress test in the morning
[2018-12-27] MEDS: ATORVASTATIN CALCIUM 10 MG TABLET PO SCH (22:00)
[2018-12-27] MEDS: ASPIRIN 325 MG TABLET PO SCH (22:00)
--- NOTE | 2018-12-27 23:23 | Progress Note ---
Provider Note Provider Note: Cardiology PROGRESS NOTE by Dr. Radha Zelaya on 12/27/2018. SUBJECTIVE: The patient denies any chest pain discomfort. There is no shortness of breath. There is no cough or wheezing. There is no PND or orthopnea. There is no leg edema. There is no ventricular arrhythmias or atrial arrhythmia seen on the monitor. There is no TIA CVA symptoms this admission. PHYSICAL EXAMINATION: The patient is mildly obese. In no acute distress. She is well-groomed. Selected Entries 12/27/18 08:06 Temperature 98.2 F Temperature Oral Source Pulse Rate 79 Respiratory 17 Rate Blood Pressure 134/83 H Blood Pressure 100 Mean BP Location Left Arm BP Position Supine O2 Sat by Pulse 95 Oximetry Oxygen Delivery Room Air Method HEAD: Is atraumatic normocephalic. EYES: Pupils equal round regular react to light accommodation. Extraocular movements are normal. There is no con junctival pallor. There is no scleral icterus. ENT is negative. NECK: Is supple. There is no JVD. Carotids are equal there is no bruit. THERE IS NO LYMPHADENOPATHY. THERE IS NO GOITER. Lungs: Trachea central. There is diminished air entry and prolonged expiration throughout. There is no rhonchi rales or wheezing. On percussion there is hyperresonance. HEART: S1-S2 is heard. There is no S3 gallop. There is no S4 gallop. There is systolic murmur left sternal border and the apex there is no rub. ABDOMEN: Is obese. Nontender. There is no hepatosplenic megaly. Bowel sounds are well heard. There is no tender areas masses. EXTREMITIES: Femorals are deep. Femorals are diminished. There is no femoral bruits. Leg pulses are diminished. There is trace pedal edema bilaterally. There is no DVT or colitis. There is no sinus or clubbing. OVERNIGHT HOUSEPERSON: The patient is conscious awake alert oriented x3 with no focal deficit. PSYCHIATRIC: The patient judgment insight are intact her affect is normal. 12/27/18 12/27/18 04:57 04:57 WBC 5.4 RBC 4.95 Hgb 13.9 Hct 42.1 MCV 85 MCH 28.0 MCHC 32.9 RDW 14.8 H Plt Count 214 Seg Neutrophils % 46.3 Lymphocytes % 40.1 Monocytes % 11.2 Sodium 139.7 Potassium 4.3 Chloride 102 Carbon Dioxide 29 BUN 31 H Creatinine 1.18 Est GFR ( Amer) 53 L Glucose 170 H Calcium 9.5 IMPRESSION/RECOMMENDATION: 1. Chest pain: No recurrence. No evidence of UT. Patient in view of multiple risk factors for CAD will have a Lexiscan Cardiolite stress test tomorrow. 2. Hypertension: Blood pressure well controlled. Continue current medications. 3. Diabetes mellitus: Continue antidiabetic medication and current monitoring of patient's blood sugars periodically. 4. Chronic kidney disease stage IIIa: Avoid nephrotoxic drugs. 5. COPD: At present stable. No evidence of acute exacerbation. Medications reviewed. Medications discussed with attending physician. Management plan discussed with attending physician. Patient for IV Lexiscan cardiac stress test tomorrow morning. Medical decision making I was of moderate complexity. 40 minutes spent on this patient with more than 50% of time spent in direct patient care. The patient is a full code and her son is her surrogate healthcare decision maker. Will follow with you
[2018-12-28] MEDS: PANTOPRAZOLE SODIUM 20 MG TABLET.DR PO SCH (05:48)
[2018-12-28] MEDS: ENOXAPARIN SODIUM INJ 40 MG/0.4 ML DISP.SYRIN SUBCUT SCH (11:48)
[2018-12-28] MEDS: HYDROCHLOROTHIAZIDE 25 MG TABLET PO SCH (11:49)
[2018-12-28] MEDS: LOSARTAN POTASSIUM 50 MG TABLET PO SCH (11:49)
[2018-12-28] MEDS: INSULIN LISPRO 100 UNIT/ML 3 ML VIAL SUBCUT SCH ×3 (11:49→17:28)
[2018-12-28] MEDS ORDERED: REGADENOSON INJ 0.4 MG/5 ML DISP.SYRIN IV ONE (12:50)
[2018-12-28] MEDS: ATORVASTATIN CALCIUM 10 MG TABLET PO SCH (21:33)
[2018-12-28] MEDS: ASPIRIN 325 MG TABLET PO SCH (21:33)
--- NOTE | 2018-12-28 22:33 | Progress Note ---
Provider Note Provider Note: CARDIOLOGY PROGRESS NOTE by Dr. Radha Butler on 12/28/2018. SUBJECTIVE: The patient denies any chest pain or discomfort. There is no PND orthopnea. There is no wheezing or cough. There is no symptoms of acute exacerbation of COPD. There is no further chest pains. There is no arrhythmia seen on the monitor. The patient did have a IV Lexiscan Cardiolite stress test today. There is no TIA CVA symptoms. There is no leg edema. The patient denies any PND orthopnea. There is no shortness of breath. physical EXAMINATION: The patient is mildly obese. She is well-groomed. In no acute distress. Selected Entries 12/27/18 08:06 Temperature 98.2 F Temperature Oral Source Pulse Rate 79 Respiratory 17 Rate Blood Pressure 134/83 H Blood Pressure 100 Mean BP Location Left Arm BP Position Supine O2 Sat by Pulse 95 Oximetry Oxygen Delivery Room Air Method HEAD: Is atraumatic normocephalic. EYES: Pupils equal round regular react to light accommodation. Extraocular movements are normal. There is no conjunctival pallor. There is no scleral icterus. ENT is negative. NECK: Is supple. There is no JVD. Carotids are equal there is no bruit. THERE IS NO LYMPHADENOPATHY. THERE IS NO GOITER. Lungs: Trachea central. There is diminished air entry and prolonged expiration throughout. There is no rhonchi rales or wheezing. On percussion there is hyperresonance. HEART: S1-S2 is heard. There is no S3 gallop. There is no S4 gallop. There is systolic murmur left sternal border and the apex there is no rub. ABDOMEN: Is obese. Nontender. There is no hepatosplenic megaly. Bowel sounds are well heard. There is no tender areas masses. EXTREMITIES: Femorals are deep. Femorals are diminished. There is no femoral bruits. Leg pulses are diminished. There is trace pedal edema bilaterally. There is no DVT or colitis. There is no sinus or clubbing. [employer]: The patient is conscious awake alert oriented x3 with no focal deficit. PSYCHIATRIC: The patient judgment insight are intact her affect is normal. Labs- All tests 24 hr 12/28/18 12/28/18 12/28/18 08:00 12:20 16:54 POC Glucose 193 H 249 H 312 H 12/28/18 21:50 POC Glucose 207 H Chest X-Ray 12/25/18 22:39 IMPRESSION: No acute findings. No focal lung consolidation. Head CT 12/26/18 00:00 IMPRESSION: MICROVASCULAR ISCHEMIA AND GENERALIZED ATROPHY. NO ACUTE IMAGING FINDINGS IN THE BRAIN EVIDENCE OF ACUTE STROKE: NO. IV Lexiscan Cardiolite stress test: This shows no reversible ischemia. There is no AZ or scar. IMPRESSION/RECOMMENDATION: 1. Chest pain: No recurrence. No evidence of AZ. Patient in view of multiple risk factors for CAD. The patient's Cardiolite stress test shows no evidence of ischemia or AZ or scar. This has been discussed with the patient. 2. Hypertension: Blood pressure well controlled. Continue current medications. 3. Diabetes mellitus: Continue antidiabetic medication and current monitoring of patient's blood sugars periodically. 4. Chronic kidney disease stage IIIa: Avoid nephrotoxic drugs. 5. COPD: At present stable. No evidence of acute exacerbation. Medications reviewed. Medications discussed with attending physician. Management plan discussed with attending physician. Patient for IV Lexiscan cardiac stress test tomorrow morning. Medical decision making I was of moderate complexity. 40 minutes spent on this patient with more than 50% of time spent in direct patient care. The patient is a full code and her son is her surrogate healthcare decision maker. Discussed the findings of the stress test with Dr. Darci gonzalez by telephone. Will sign off. Thanking you for allowing me to participate in the care of this patient.
--- NOTE | 2018-12-28 22:58 | DRAGON STRESS TEST REPORT ---
Intravenous Lexiscan Cardiolite stress test using single photon emmision computerized tomography. Date of procedure: 12/28/2018. Ordering Provider: Dr. Myers. Patient's status: In Patient. Indication: Chest pain. Coronary risk factors: Age, diabetes mellitus, hypertension, and dyslipidemia. Resting EKG: Sinus Rhythm. Within Normal Limits. Stress EKG: No changes of ischemia. The patient had no chest pain or discomfort, and there were no arrhythmias seen. Reason for termination: Protocol. Conclusions: Normal EKG and hemodynamic response to IV Lexiscan. Nuclear data: At rest the patient was given 12.58 millicuries of technetium 99m sestamibi injected intravenously. As per protocol rest non gated SPECT images were obtained. Subsequently the patient was given intravenous Lexiscan at a dose of 0.4 mg in 5 mL intravenously, followed by flush with normal saline. Subsequently the stress dose of 36.9 millicuries of technetium 99m sestamibi was injected intravenously. As per protocol stress gated images were obtained. Nuclear interpretation: Review of images showed that all segments of the myocardium had normal perfusion at rest, and normal perfusion post stress with IV Lexiscan. All segments of the myocardium had normal motion, contraction, and thickening by gated study. T. I D. ratio was normal at 0.89. There is no transient ischemic dilatation of the left ventricle. Computer read rest, and stress left ventricular ejection fraction were 71 %, and 69 %, respectively. Conclusion: 1. There is no scintigraphic evidence of Lexiscan induced myocardial ischemia. 2. There is no scintigraphic evidence of myocardial infarction/scar. Recommendations: Aggressive risk factor modification, and treating the underlying co- morbidities. MTDD
--- NOTE | 2018-12-28 23:20 | PDOC DISCHARGE SUMMARY ---
General - Admit/Disc Date/PCP Admission Date/Primary Care Provider: 12/26/18 00:51 ALE RODRIGUEZ MD Discharge Date: 12/29/18 - Discharge Diagnosis (1) T2DM (type 2 diabetes mellitus) Is this a current diagnosis for this admission?: Yes (2) Chest pain Is this a current diagnosis for this admission?: Yes - Additional Information Home Medications: RX: Aspirin [Ecotrin 81 mg EC Tablet] 81 mg PO DAILY 03/19/12 RX: Pravastatin Sodium [Pravachol] 40 mg PO QHS 03/19/12 RX: Benzonatate [Tessalon Perle 100 mg Capsule] 200 mg PO Q8HP PRN 12/26/18 RX: Bisacodyl [Dulcolax 5 mg Tablet] 5 mg PO BIDP PRN 12/26/18 RX: Empagliflozin [Jardiance] 25 mg PO DAILY 12/26/18 RX: Insulin Degludec [Tresiba] 36 unit SQ QHS 12/26/18 RX: Insulin Lispro [Humalog Kwikpen U-100] 0 unit SQ BID 12/26/18 RX: Losartan/Hydrochlorothiazide [Losartan-Hctz 100-25 mg Tab] 1 tab PO DAILY 12/26/18 RX: Simethicone 125 mg PO TIDP PRN 12/26/18 RX: Cholecalciferol (Vitamin D3) [Vitamin D3] 5,000 unit PO DAILY 12/27/18 History of Present Illness History of Present Illness: KACI BA is a 78 year old female, She was admitted when she presented for evaluation of chest pain, she has multiple risk factors for ischemic heart disease Hospital Course Hospital Course: She was admitted for the management of chest pain with a background of multiple risk factors for ischemic heart disease. The serial cardiac enzymes were negative for acute IL. She underwent Cardiolite Lexiscan stress test, this was negative for any acute reversibility that would suggest ischemia. The predictive value of a negative stress test in a female is very high, negative study suggest that her chest pain is probably a noncardiac chest pain Physical Exam Vital Signs: Temp Pulse Resp BP Pulse Ox 98.4 F 110 H 19 132/83 H 98 12/28/18 19:29 12/28/18 19:29 12/28/18 19:29 12/28/18 19:29 12/28/18 19:29 Intake & Output 12/27/18 12/28/18 12/29/18 06:59 06:59 06:59 Intake Total 1200 820 600 Output Total 300 800 700 Balance 900 20 -100 Weight 79.9 kg 82.1 kg General appearance: PRESENT: no acute distress Eye exam: PRESENT: PERRLA Ear exam: PRESENT: normal external ear exam Mouth exam: PRESENT: moist, tongue midline Neck exam: PRESENT: full ROM Respiratory exam: PRESENT: clear to auscultation kera Cardiovascular exam: PRESENT: RRR, +S1, +S2 Pulses: PRESENT: normal dorsalis pedis pul, +2 pedal pulses bilateral Vascular exam: PRESENT: normal capillary refill GI/Abdominal exam: PRESENT: normal bowel sounds, soft Rectal exam: PRESENT: deferred Neurological exam: PRESENT: alert, CN II-XII grossly intact Skin exam: PRESENT: dry, intact, warm Results Laboratory Results: 12/27/18 04:57 12/27/18 04:57 12/25/18 12/26/18 12/26/18 22:45 01:30 01:30 Creatine Kinase 61 CK-MB (CK-2) 1.07 Troponin I < 0.012 0.016 12/26/18 12/26/18 12/26/18 07:38 07:38 14:48 Creatine Kinase 76 90 CK-MB (CK-2) 1.23 Troponin I 0.015 12/26/18 14:48 Creatine Kinase CK-MB (CK-2) 1.28 Troponin I 0.013 Impressions: Chest X-Ray 12/25/18 22:39 IMPRESSION: No acute findings. No focal lung consolidation. Head CT 12/26/18 00:00 IMPRESSION: MICROVASCULAR ISCHEMIA AND GENERALIZED ATROPHY. NO ACUTE IMAGING FINDINGS IN THE BRAIN EVIDENCE OF ACUTE STROKE: NO. Qualifiers - * PATIENT BEING DISCHARGED WITH ANY OF THE FOLLOWING DIAGNOSIS: No
[2018-12-29] MEDS: PANTOPRAZOLE SODIUM 20 MG TABLET.DR PO SCH (05:31)
[2018-12-29] MEDS: INSULIN LISPRO 100 UNIT/ML 3 ML VIAL SUBCUT SCH ×2 (09:05→12:12)
[2018-12-29] MEDS: LOSARTAN POTASSIUM 50 MG TABLET PO SCH (12:09)
[2018-12-29] MEDS: HYDROCHLOROTHIAZIDE 25 MG TABLET PO SCH (12:10)
[2018-12-29] MEDS: ENOXAPARIN SODIUM INJ 40 MG/0.4 ML DISP.SYRIN SUBCUT SCH (12:11)
[2018-12-29 15:03] VITALS: BP 131/74
== END 2018-12-29 15:43 | disposition home or self-care (01) ==
LOC: ER 21:36 → EH 12-26 00:51 → INTOOBSV 12-26 00:51 → 5 12-26 03:04
PROVIDERS: ADMIT Family Medicine; ATTEND Internal Medicine
DX: E11.42 Type 2 diabetes mellitus with diabetic polyneuropathy (principal); R07.89 Other chest pain; M19.90 Unspecified osteoarthritis, unspecified site; M79.605 Pain in left leg; M79.604 Pain in right leg; J44.9 Chronic obstructive pulmonary disease, unspecified; I11.0 Hypertensive heart disease with heart failure; I50.9 Heart failure, unspecified; I13.0 Hypertensive heart and chronic kidney disease with heart failure and stage 1 through stage 4 chronic kidney disease, or unspecified chronic kidney disease; N18.3 Chronic kidney disease, stage 3 (moderate); E11.22 Type 2 diabetes mellitus with diabetic chronic kidney disease; R06.09 Other forms of dyspnea; R53.1 Weakness; Z79.82 Long term (current) use of aspirin; Z79.899 Other long term (current) drug therapy; Z79.4 Long term (current) use of insulin; Z82.49 Family history of ischemic heart disease and other diseases of the circulatory system; Z98.890 Other specified postprocedural states; Z74.09 Other reduced mobility; E66.01 Morbid (severe) obesity due to excess calories; Z90.49 Acquired absence of other specified parts of digestive tract; Z86.73 Personal history of transient ischemic attack (TIA), and cerebral infarction without residual deficits
CPT/HCPCS: 93005; 99285; 36415 ×3; 82553; 82962 ×4; 82550; 85025 ×2; 80048; 80053; 81001; 84484 ×2; 93017; 71045; 78452; 70450; 93010; 97162; G0378 ×5; A9500; J2785; A9270 ×14; J3490 ×5; J1650 ×4; Q9969; J1815

== ENCOUNTER 2019-01-14 17:59 | Inpatient (IN) | payer MEDICARE, OTHER ==
[2019-01-14] MEDS ORDERED: IPRATROPIUM/ALBUTEROL 0.5-2.5 MG/3 ML AMPUL NEB ONE ×2 (18:24→21:52)
[2019-01-14] MEDS: ALBUTEROL SULFATE 0.083% NEB 2.5 MG/3 ML AMPUL NEB SCH ×2 (19:21→20:43)
[2019-01-14 19:38] LABS: ABSOLUTE LYMPHOCYTES (AUTO) 1.5 10^3/uL (0.5-4.7); ABSOLUTE MONOCYTES (AUTO) 0.7 10^3/uL (0.1-1.4); ABSOLUTE NEUT (AUTO) 2.8 10^3/uL (1.7-8.2); BASOPHILS % (AUTO) 0.7 % (0-2); EOSINOPHILS % (AUTO) 0.8 % (0-6); HEMATOCRIT 44.7 % (36.0-47.0); HEMOGLOBIN 14.4 g/dL (12.0-15.5); LYMPHOCYTES % (AUTO) 30.3 % (13-45); MEAN CORPUSCULAR HEMOGLOBIN 27.2 pg (27.0-33.4); MEAN CORPUSCULAR HGB CONC 32.2 g/dL (32.0-36.0); MEAN CORPUSCULAR VOLUME 85 fl (80-97); MONOCYTES % (AUTO) 13.7 % (3-13); PLATELET COUNT 236 10^3/uL (150-450); RED BLOOD COUNT 5.28 10^6/uL (3.72-5.28); RED CELL DISTRIBUTION WIDTH 14.9 % (11.5-14.0); SEGMENTED NEUTROPHILS % (AUTO) 54.5 % (42-78); TOTAL CELLS COUNTED % (AUTO) 100 %; VENOUS BLOOD PCO2 56.6 mmHg (35-63); VENOUS BLOOD PH 7.38 (7.30-7.42); WHITE BLOOD COUNT 5.1 10^3/uL (4.0-10.5)
[2019-01-14 19:56] LABS: ALANINE AMINOTRANSFERASE 33 U/L (9-52); ALBUMIN 3.6 g/dL (3.5-5.0); ALKALINE PHOSPHATASE 102 U/L (38-126); ANION GAP 7 (5-19); ASPARTATE AMINO TRANSFERASE 38 U/L (14-36); BILIRUBIN,DIRECT 0.3 mg/dL (0.0-0.4); BILIRUBIN,TOTAL 0.7 mg/dL (0.2-1.3); BLOOD UREA NITROGEN 45 mg/dL (7-20); CALCIUM 10.2 mg/dL (8.4-10.2); CARBON DIOXIDE 32 mmol/L (22-30); CHLORIDE 98 mmol/L (98-107); GLUCOSE 237 mg/dL (75-110); POTASSIUM 4.6 mmol/L (3.6-5.0); SODIUM 137.2 mmol/L (137-145); TOTAL PROTEIN 7.3 g/dL (6.3-8.2)
[2019-01-14 20:07] LABS: NT PRO BNP 94 pg/mL (<450)
[2019-01-14 20:09] LABS: TROPONIN I < 0.012 ng/mL
--- NOTE | 2019-01-14 20:47 | ER Document Report ---
ED General - General Chief Complaint: Nausea/Vomiting Stated Complaint: BODY PAIN Time Seen by Provider: 01/14/19 19:22 Primary Care Provider: ALE RODRIGUEZ MD [Primary Care Provider] - Follow up as needed Notes: Patient is a 78-year-old female with a past medical history of COPD, essential hypertension, obesity, presents complaining of 1 week of cough, sputum production and shortness of breath. EMS states when they first got there the patient was in more distress, saturating in the low 80s and was placed on CPAP. They did discontinue CPAP coming to the hospital because the patient did not appear labored and began saturating in the low 90s by nasal cannula. Patient does not have a baseline oxygen dependency. States that her symptoms are moderate to severe, gradual in onset, have been worsening since that time. She states that she is coughing up yellow-green phlegm. Has not had a recorded fever. She notes some nasal congestion sore throat. Denies chest pain. Has not seen her primary care doctor regarding today's concerns. States this feels very similar to when she has had pneumonia in the past. TRAVEL OUTSIDE OF THE [place] IN LAST 30 DAYS: No - Related Data Allergies/Adverse Reactions: metronidazole [From Flagyl] Allergy (Verified 01/14/19 19:49) Metronidazole HCl [From Flagyl] Allergy (Verified 01/14/19 19:49) Past Medical History - General Information source: Patient - Social History Smoking Status: Never Smoker Chew tobacco use (# tins/day): No Frequency of alcohol use: None Drug Abuse: None Lives with: Alone Family History: Reviewed & Not Pertinent, CAD - Brother had a heart attack at 55 years of age. Patient has suicidal ideation: No Patient has homicidal ideation: No - Past Medical History Cardiac Medical History: Reports: Hx Congestive Heart Failure, Hx Hypertension Pulmonary Medical History: Reports: Hx COPD, Hx Pneumonia Endocrine Medical History: Reports: Hx Diabetes Mellitus Type 1, Hx Diabetes Mellitus Type 2 Renal/ Medical History: Denies: Hx Peritoneal Dialysis GI Medical History: Reports: Hx Gastroesophageal Reflux Disease Musculoskeletal Medical History: Reports Hx Arthritis Past Surgical History: Reports: Hx Appendectomy, Hx Cardiac Surgery - tumor left ventricle, Hx Hysterectomy, Other - Heart surgery - Immunizations Hx Diphtheria, Pertussis, Tetanus Vaccination: No Hx Pneumococcal Vaccination: 01/01/06 Review of Systems - Review of Systems Notes: Constitutional: Negative for fever. HENT: Negative for sore throat. Eyes: Negative for visual changes. Cardiovascular: Negative for chest pain. Respiratory: Positive for cough and shortness of breath Gastrointestinal: Negative for abdominal pain, vomiting or diarrhea. Genitourinary: Negative for dysuria. Musculoskeletal: Negative for back pain. Skin: Negative for rash. Neurological: Negative for headaches, weakness or numbness. 10 point ROS negative except as marked above and in HPI. Physical Exam - Vital signs Vitals: Temp Pulse Resp BP Pulse Ox 97.6 F 103 H 18 146/105 H 94 01/14/19 18:00 01/14/19 18:00 01/14/19 18:00 01/14/19 18:00 01/14/19 18:00 Interpretation: Hypertensive, Tachycardic Notes: PHYSICAL EXAMINATION: GENERAL: Appears moderately unwell but in no acute distress HEAD: Atraumatic, normocephalic. EYES: Pupils equal round and reactive to light, extraocular movements intact, sclera anicteric, conjunctiva are normal. ENT: nares patent, oropharynx clear without exudates. Mildly dry mucous membranes. NECK: Normal range of motion, supple without lymphadenopathy LUNGS: Scattered rhonchi and wheezing in all lung andino on both inspiratory and extra Tory phase. Mild tachypnea. HEART: Regular tachycardia and systolic ejection murmur 4 out of 6 ABDOMEN: Soft, nontender, normoactive bowel sounds. No guarding, no rebound. No masses appreciated. EXTREMITIES: Normal range of motion, no pitting or edema. No cyanosis. NEUROLOGICAL: No focal neurological deficits. Moves all extremities spontaneously and on command. PSYCH: Normal mood, normal affect. SKIN: Warm, Dry, normal turgor, no rashes or lesions noted. Course - Re-evaluation Re-evalutation: 01/14/19 20:46 Patient presents with multiple complaints although her most focal concern to me is that she has had 1 week of coughing with associated sputum production. Patient is otherwise nontoxic in appearance. Vitals are within acceptable limits without tachycardia or hypoxemia. Saturating 95-96% on room air. P atient's lung examination most consistent with bronchitis with rattling inspiratory breath sounds reproduced in the upper airway. Patient has some coarse expiratory wheezing. Chest x-ray is pending. Very low clinical suspicion for cardiac etiology, pulmonary embolus. Alternative consideration to bronchitis would be an acute bacterial pneumonia. Less likely to be an acute influenza given absence of sore throat or fever. Flu test and chest x-ray are pending. 01/14/19 21:54 Chest x-ray does not demonstrate any acute infiltrates. Influenza screening pending. Patient unfortunately continues to have hypoxia off supplemental oxygen ranging between 89 and 90% on room air. Additional nebulizers and steroids will be admit given her ongoing hypoxia will discuss with her primary physician Dr. Rodriguez for admission - Vital Signs Vital signs: Temp Pulse Resp BP Pulse Ox 97.6 F 103 H 31 H 158/85 H 93 01/14/19 18:00 01/14/19 18:00 01/14/19 21:01 01/14/19 21:01 01/14/19 21:01 - Laboratory Result Diagrams: 01/14/19 19:20 01/14/19 19:20 Laboratory results interpreted by me: 01/14/19 01/14/19 01/14/19 19:20 19:20 19:20 RDW 14.9 H Monocytes % 13.7 H VBG HCO3 33.0 H Carbon Dioxide 32 H BUN 45 H Creatinine 1.44 H Est GFR ( Amer) 42 L Est GFR (Non-Af Amer) 35 L Glucose 237 H Magnesium AST 38 H Ammonia 01/14/19 01/15/19 19:20 00:10 RDW Monocytes % VBG HCO3 Carbon Dioxide BUN Creatinine Est GFR ( Amer) Est GFR (Non-Af Amer) Glucose Magnesium 1.5 L AST Ammonia < 8.7 L - Diagnostic Test Radiology reviewed: Image reviewed, Reports reviewed Radiology results interpreted by me: 01/15/19 01:15 Chest x-ray: No acute infiltrate or pneumothorax Discharge - Discharge Clinical Impression: Hypertension, Hypoxia, Bronchitis, COPD exacerbation Condition: Fair Disposition: ADMITTED INPATIENT Admitting Provider: Louis Unit Admitted: Telemetry Referrals: ALE RODRIGUEZ MD [Primary Care Provider] - Follow up as needed
--- NOTE | 2019-01-14 21:50 | RADIOLOGY REPORT (SQ) ---
EXAM DESCRIPTION: Chest 2 views Views: 2 CLINICAL HISTORY: 78 years Female, cough, sputum prodcution COMPARISON: 12/25/2018 FINDINGS: Slight elevation of the right hemidiaphragm is similar to prior exam. No acute infiltrate. No pneumothorax or pleural effusion. Sternal wires and plates are again noted. Mediastinum is unchanged. Bony structures are unremarkable for age. IMPRESSION: 1. No acute infiltrates. 2. Previous sternotomy.
[2019-01-14] MEDS ORDERED: METHYLPREDNISOLONE INJ 125 MG/2 ML SDV IV ONE (21:52)
[2019-01-14] MEDS ORDERED: ALBUTEROL SULFATE 0.083% NEB 2.5 MG/3 ML AMPUL NEB ONE (21:53)
[2019-01-14 23:00] LABS: A TYPE INFLUENZA AG NEGATIVE (NEGATIVE); B INFLUENZA AG NEGATIVE (NEGATIVE)
[2019-01-14] MEDS ORDERED: IPRATROPIUM/ALBUTEROL 0.5-2.5 MG/3 ML AMPUL NEB PRN (23:26)
[2019-01-14 23:50] LABS: LIPASE 204.2 U/L (23-300); PHOSPHORUS 3.6 mg/dL (2.5-4.5)
[2019-01-15 00:14] LABS: FREE T4 (FREE THYROXINE) 1.95 ng/dL (0.78-2.19)
[2019-01-15 00:28] LABS: THYROID STIMULATING HORMONE 2.38 uIU/mL (0.47-4.68)
[2019-01-15 01:02] LABS: CREATINE KINASE MB 0.92 ng/mL (<4.55)
[2019-01-15 01:09] LABS: TROPONIN I < 0.012 ng/mL
[2019-01-15 05:40] LABS: ABSOLUTE LYMPHOCYTES (AUTO) 0.5 10^3/uL (0.5-4.7); ABSOLUTE NEUT (AUTO) 3.3 10^3/uL (1.7-8.2); BASOPHILS % (AUTO) 0.3 % (0-2); EOSINOPHILS % (AUTO) 0.1 % (0-6); HEMATOCRIT 42.9 % (36.0-47.0); LYMPHOCYTES % (AUTO) 13.5 % (13-45); MEAN CORPUSCULAR HEMOGLOBIN 27.8 pg (27.0-33.4); MEAN CORPUSCULAR HGB CONC 32.6 g/dL (32.0-36.0); MEAN CORPUSCULAR VOLUME 85 fl (80-97); MONOCYTES % (AUTO) 1.3 % (3-13); PLATELET COUNT 227 10^3/uL (150-450); RED BLOOD COUNT 5.04 10^6/uL (3.72-5.28); RED CELL DISTRIBUTION WIDTH 14.6 % (11.5-14.0); SEGMENTED NEUTROPHILS % (AUTO) 84.8 % (42-78); TOTAL CELLS COUNTED % (AUTO) 100 %; WHITE BLOOD COUNT 3.9 10^3/uL (4.0-10.5)
[2019-01-15] MEDS: HEPARIN SOD (PORCINE) 5,000 UNIT/ML 1 ML SYRINGE SUBCUT SCH ×3 (05:41→21:59)
[2019-01-15 05:52] LABS: INTERNATIONAL RATION (INR) 0.87; PROTHROMBIN TIME 12.2 SEC (11.4-15.4)
[2019-01-15 05:53] LABS: PARTIAL THROMBOPLASTIN TIME 29.3 SEC (23.5-35.8)
[2019-01-15 06:05] LABS: ALANINE AMINOTRANSFERASE 50 U/L (9-52); ALBUMIN 3.5 g/dL (3.5-5.0); ALKALINE PHOSPHATASE 103 U/L (38-126); ANION GAP 9 (5-19); ASPARTATE AMINO TRANSFERASE 49 U/L (14-36); BLOOD UREA NITROGEN 44 mg/dL (7-20); CALCIUM 9.8 mg/dL (8.4-10.2); CARBON DIOXIDE 28 mmol/L (22-30); CHLORIDE 98 mmol/L (98-107); POTASSIUM 5.2 mmol/L (3.6-5.0); SODIUM 135.2 mmol/L (137-145)
[2019-01-15 06:06] LABS: BILIRUBIN,DIRECT 0.3 mg/dL (0.0-0.4); BILIRUBIN,TOTAL 0.5 mg/dL (0.2-1.3); CHOLESTEROL 198.63 mg/dL (0-200); CREATINE KINASE 105 U/L (30-135); TOTAL PROTEIN 7.1 g/dL (6.3-8.2); TRIGLYCERIDES 78 mg/dL (<150)
[2019-01-15 06:17] LABS: CREATINE KINASE MB 1.09 ng/mL (<4.55); DIRECT LDL 140 mg/dL (<100)
[2019-01-15 06:18] LABS: TROPONIN I < 0.012 ng/mL
[2019-01-15 06:19] LABS: GLUCOSE 435 mg/dL (75-110)
[2019-01-15 07:08] LABS: ARTERIAL BLOOD BASE EXCESS 3.8 mmol/L; ARTERIAL BLOOD H2CO3 1.54 mmol/L (1.05-1.35); ARTERIAL BLOOD O2 SATURATION 96.2 % (94-98); ARTERIAL BLOOD PCO2 51.1 mmHg (35-45); ARTERIAL BLOOD PH 7.39 (7.35-7.45); ARTERIAL BLOOD PO2 85.3 mmHg (80-100); ARTERIAL BLOOD TOTAL CO2 31.5 mmol/L (21-25)
[2019-01-15 07:11] LABS: ARTERIAL BLOOD FIO2 2L
[2019-01-15] MEDS ORDERED: DEXTROSE 40% GEL 15 GM TUBE X 2 PO PRN (08:30)
[2019-01-15] MEDS ORDERED: GLUCAGON,HUMAN RECOMB 1 MG INJ IM PRN (08:30)
[2019-01-15] MEDS ORDERED: DEXTROSE 40% GEL 15 GM TUBE PO PRN (08:30)
[2019-01-15] MEDS ORDERED: DEXTROSE 50%-WATER SYRINGE 25 GM/50 ML DOSE IV PRN (08:30)
[2019-01-15] MEDS ORDERED: DEXTROSE 50%-WATER SYRINGE 12.5 GM/25 ML DOSE IV PRN (08:30)
[2019-01-15 11:16] LABS: AMORPHOUS SEDIMENT,URINE TRACE /HPF; APPEARANCE,URINE CLOUDY; BILIRUBIN,URINE NEGATIVE (NEGATIVE); COLOR,URINE AMBER; GLUCOSE, URINE >=500 mg/dL (NEGATIVE); KETONES,URINE NEGATIVE (NEGATIVE); LEUKOCYTE ESTERASE,URINE SMALL (NEGATIVE); NITRITE,URINE NEGATIVE (NEGATIVE); PROTEIN,URINE NEGATIVE (NEGATIVE); URINE SPECIFIC GRAVITY 1.022
[2019-01-15 11:24] LABS: URINE AMPHETAMINES SCREEN NEGATIVE; URINE BARBITURATES SCREEN NEGATIVE; URINE BENZODIAZEPINES SCREEN NEGATIVE; URINE COCAINE SCREEN NEGATIVE; URINE MARIJUANA (THC) SCREEN NEGATIVE; URINE METHADONE SCREEN NEGATIVE; URINE PHENCYCLIDINE SCREEN NEGATIVE
[2019-01-15] MEDS: INSULIN LISPRO 100 UNIT/ML 3 ML VIAL SUBCUT SCH ×3 (11:29→21:50)
[2019-01-15 12:02] LABS: CREATINE KINASE MB 1.28 ng/mL (<4.55)
[2019-01-15 12:09] LABS: TROPONIN I < 0.012 ng/mL
[2019-01-15] MEDS ORDERED: INSULIN DEGLUDEC 36 UNIT SQ SCH (18:00)
[2019-01-15] MEDS ORDERED: INSULIN LISPRO 100 UNIT/ML 3 ML VIAL SUBCUT ONE (18:15)
--- NOTE | 2019-01-15 18:45 | RADIOLOGY REPORT (SQ) ---
EXAM DESCRIPTION: CT CHEST WITHOUT COMPLETED DATE/TIME: 01/15/2019 6:35 pm REASON FOR STUDY: pneumonia COMPARISON: Chest radiograph 01/14/2019 and earlier TECHNIQUE: CT scan performed of the chest without intravenous contrast. Images reviewed with lung, soft tissue and bone windows. Reconstructed coronal and sagittal MPR images reviewed. All images st ored on PACS. All CT scanners at this facility use dose modulation, iterative reconstruction, and/or weight based d osing when appropriate to reduce radiation dose to as low as reasonably achievable (ALARA). [facility]: Dose Right [facility]: CareDose [facility]: Dose Right [facility]: Teradose 4D [facility]: Smart Booklr RADIATION DOSE: CT Rad equipment meets quality standard of care and radiation dose reduction techniq ues were employed. CTDIvol: 20.1 mGy. DLP: 714 mGy-cm. mGy. LIMITATIONS: No technical limitations. FINDINGS: LUNGS AND PLEURA: No masses, opacities, or pneumothorax. No pleural effusions or pleural calcifications. HILAR AND MEDIASTINAL STRUCTURES: No identified masses or abnormal nodes. Calcified mediastinal barb r lymph node HEART AND VASCULAR STRUCTURES: No aneurysm. Mild moderate scattered vascular calcifications. No per icardial effusion. UPPER ABDOMEN: No significant findings. Limited exam. THYROID AND OTHER SOFT TISSUES: No masses. No adenopathy. BONES: No significant finding. Degenerative disc disease of the thoracic spine. HARDWARE: Postsurgical changes of the mediastinum. OTHER: No other significant findings. IMPRESSION: NO SIGNIFICANT FINDING ON NON-CONTRASTED CHEST CT. TECHNICAL DOCUMENTATION: JOB ID: [id number] Quality ID # [id number]: Final reports with documentation of one or more dose reduction techniques (e.g., Au tomated exposure control, adjustment of the mA and/or kV according to patient size, use of iterative reconstruction technique) 2010 [employer]- All Rights Reserved Reading location - IP/workstation name: [email or web address]
[2019-01-15] MEDS ORDERED: METFORMIN HCL 500 MG TABLET PO ONE (19:00)
[2019-01-15] MEDS ORDERED: IPRATROPIUM/ALBUTEROL 0.5-2.5 MG/3 ML AMPUL NEB PRN (20:50)
--- NOTE | 2019-01-15 21:01 | PDOC H&P ---
History of Present Illness Admission Date/PCP: 01/15/19 01:33 ALE RODRIGUEZ MD History of Present Illness: KACI BA is a 78 year old female, She came to the emergency room for e valuation of cough and shortness of breath, she was just recently admitted in this hospital for evaluation of chest pain at the time she underwent a Cardiolite Lexiscan stress test which was negative for acute ischemia. She was discharged on 12/28/2018.The ED physician stated when she arrived in the emergency room she was wheezing, she has no smoking history she has no documented history of COPD that I know of, she is relatively new to our practice, she has a history of diabetes mellitus CVA with residual weakness, cognitive impairment. The initial chest x-ray that was done in the ER did not demonstrate any focal infiltrate subsequent CT chest was done without contrast there was no evidence of pneumonia, when I saw her on the floor she has some scattered wheeze albeit very mild.She has severe erythema intertrigo in the groin area and also submammary erythrasma Past Medical History Cardiac Medical History: Reports: Congestive Heart Failure, Hypertension Pulmonary Medical History: Reports: Chronic Obstructive Pulmonary Disease (COPD), Pneumonia Endocrine Medical History: Reports: Diabetes Mellitus Type 2 GI Medical History: Reports: Gastroesophageal Reflux Disease Musculoskeltal Medical History: Reports: Arthritis Past Surgical History Past Surgical History: Reports: Appendectomy, Hysterectomy, Other - Heart surgery Social History Lives with: Alone Smoking Status: Never Smoker Frequency of Alcohol Use: Occasional Hx Recreational Drug Use: No Hx Prescription Drug Abuse: No - Advance Directive Resuscitation Status: Full Code Family History Family History: Reviewed & Not Pertinent, CAD - Brother had a heart attack at 55 years of age. Parental Family History Reviewed: Yes Children Family History Reviewed: Yes Sibling(s) Family History Reviewed.: Yes Medication/Allergy Home Medications: Amlodipine Besylate [Norvasc 10 mg Tablet] 10 mg PO QAM 01/15/19 Aspirin [Adult Low Dose Aspirin EC] 81 mg PO QAM 01/15/19 Cholecalciferol (Vitamin D3) [Vitamin D3 5000 unit Capsule] 5,000 unit PO DAILY 01/15/19 Empagliflozin [Jardiance] 25 mg PO QAM 01/15/19 Insulin Degludec [Tresiba Flextouch U-100] 36 units SQ QPM 01/15/19 Insulin Lispro [Humalog Kwikpen U-100] 12 unit SQ MEALS 01/15/19 Losartan/Hydrochlorothiazide [Hyzaar 100-25 Tablet] 1 tab PO QAM 01/15/19 Metformin HCl [Glucophage XR 500 mg Tablet] 500 mg PO QPM 01/15/19 Metoprolol Succinate [Toprol XL 100 mg Tablet] 100 mg PO QAM 01/15/19 Pravastatin Sodium [Pravachol] 40 mg PO QPM 01/15/19 Allergies/Adverse Reactions: metronidazole [From Flagyl] Allergy (Verified 01/14/19 19:49) Metronidazole HCl [From Flagyl] Allergy (Verified 01/14/19 19:49) Review of Systems Constitutional: ABSENT: chills, fever(s), headache(s), weight gain, weight loss Eyes: ABSENT: visual disturbances Ears: ABSENT: hearing changes Cardiovascular: ABSENT: chest pain, dyspnea on exertion, edema, orthropnea, palpitations Respiratory: PRESENT: cough, dyspnea. ABSENT: hemoptysis Gastrointestinal: ABSENT: abdominal pain, constipation, diarrhea, hematemesis, hematochezia, nausea, vomiting Genitourinary: ABSENT: dysuria, hematuria Musculoskeletal: ABSENT: joint swelling Integumentary: ABSENT: rash, wounds Neurological: ABSENT: abnormal gait, abnormal speech, confusion, dizziness, focal weakness, syncope Psychiatric: ABSENT: anxiety, depression, homidical ideation, suicidal ideation Endocrine: ABSENT: cold intolerance, heat intolerance, menstrual abnormalities, polydipsia, polyuria Hematologic/Lymphatic: ABSENT: easy bleeding, easy bruising, lymphadenopathy Physical Exam Vital Signs: Temp Pulse Resp BP Pulse Ox 98.4 F 89 20 135/74 H 97 01/15/19 16:42 01/15/19 16:42 01/15/19 16:42 01/15/19 16:42 01/15/19 16:42 Intake & Output 01/14/19 01/15/19 01/16/19 06:59 06:59 06:59 Intake Total 536 Balance 536 Weight 95.1 kg General appearance: PRESENT: no acute distress Head exam: PRESENT: atraumatic, normocephalic Eye exam: PRESENT: conjunctiva pink, EOMI, PERRLA Ear exam: PRESENT: normal external ear exam Mouth exam: PRESENT: moist, tongue midline Neck exam: PRESENT: full ROM Respiratory exam: PRESENT: wheezes Cardiovascular exam: PRESENT: RRR, +S1, +S2 Vascular exam: PRESENT: normal capillary refill GI/Abdominal exam: PRESENT: soft Rectal exam: PRESENT: deferred Neurological exam: PRESENT: alert, CN II-XII grossly intact Psychiatric exam: PRESENT: appropriate affect, normal mood Skin exam: PRESENT: erythema Results Laboratory Results: 01/15/19 05:28 01/15/19 05:28 01/14/19 01/14/19 01/15/19 19:20 19:20 00:10 WBC RBC Hgb Hct MCV MCH MCHC RDW Plt Count Seg Neutrophils % Lymphocytes % Monocytes % Eosinophils % Basophils % Absolute Neutrophils Absolute Lymphocytes Absolute Monocytes Absolute Eosinophils Absolute Basophils Carbonic Acid HCO3/H2CO3 Ratio ABG pH ABG pCO2 ABG pO2 ABG HCO3 ABG O2 Saturation ABG Base Excess FiO2 Sodium Potassium Chloride Carbon Dioxide Anion Gap BUN Creatinine Est GFR ( Amer) Est GFR (Non-Af Amer) Glucose Calcium Phosphorus 3.6 Magnesium 1.5 L Total Bilirubin AST ALT Alkaline Phosphatase Ammonia < 8.7 L Total Protein Albumin Triglycerides Cholesterol LDL Cholesterol Direct VLDL Cholesterol HDL Cholesterol Amylase 88 Lipase 204.2 TSH 2.38 Free T4 1.95 Urine Color Urine Appearance Urine pH Ur Specific [place] Urine Protein Urine Glucose (UA) Urine Ketones Urine Blood Urine Nitrite Ur Leukocyte Esterase Urine WBC (Auto) Urine RBC (Auto) 01/15/19 01/15/19 01/15/19 05:28 05:28 06:50 WBC 3.9 L RBC 5.04 Hgb 14.0 Hct 42.9 MCV 85 MCH 27.8 MCHC 32.6 RDW 14.6 H Plt Count 227 Seg Neutrophils % 84.8 H Lymphocytes % 13.5 Monocytes % 1.3 L Eosinophils % 0.1 Basophils % 0.3 Absolute Neutrophils 3.3 Absolute Lymphocytes 0.5 Absolute Monocytes 0.0 L Absolute Eosinophils 0.0 Absolute Basophils 0.0 Carbonic Acid 1.54 H HCO3/H2CO3 Ratio 19:1 ABG pH 7.39 ABG pCO2 51.1 H ABG pO2 85.3 ABG HCO3 30.0 H ABG O2 Saturation 96.2 ABG Base Excess 3.8 FiO2 2L Sodium 135.2 L Potassium 5.2 H Chloride 98 Carbon Dioxide 28 Anion Gap 9 BUN 44 H Creatinine 1.36 H Est GFR ( Amer) 45 L Est GFR (Non-Af Amer) 38 L Glucose 435 H* Calcium 9.8 Phosphorus Magnesium Total Bilirubin 0.5 AST 49 H ALT 50 Alkaline Phosphatase 103 Ammonia Total Protein 7.1 Albumin 3.5 Triglycerides 78 Cholesterol 198.63 LDL Cholesterol Direct 140 H VLDL Cholesterol 16.0 HDL Cholesterol 37 L Amylase Lipase TSH Free T4 Urine Color Urine Appearance Urine pH Ur Specific [place] Urine Protein Urine Glucose (UA) Urine Ketones Urine Blood Urine Nitrite Ur Leukocyte Esterase Urine WBC (Auto) Urine RBC (Auto) 01/15/19 10:10 WBC RBC Hgb Hct MCV MCH MCHC RDW Plt Count Seg Neutrophils % Lymphocytes % Monocytes % Eosinophils % Basophils % Absolute Neutrophils Absolute Lymphocytes Absolute Monocytes Absolute Eosinophils Absolute Basophils Carbonic Acid HCO3/H2CO3 Ratio ABG pH ABG pCO2 ABG pO2 ABG HCO3 ABG O2 Saturation ABG Base Excess FiO2 Sodium Potassium Chloride Carbon Dioxide Anion Gap BUN Creatinine Est GFR ( Amer) Est GFR (Non-Af Amer) Glucose Calcium Phosphorus Magnesium Total Bilirubin AST ALT Alkaline Phosphatase Ammonia Total Protein Albumin Triglycerides Cholesterol LDL Cholesterol Direct VLDL Cholesterol HDL Cholesterol Amylase Lipase TSH Free T4 Urine Color ELIZ Urine Appearance CLOUDY Urine pH 5.0 Ur Specific [place] 1.022 Urine Protein NEGATIVE Urine Glucose (UA) >=500 H Urine Ketones NEGATIVE Urine Blood MODERATE H Urine Nitrite NEGATIVE Ur Leukocyte Esterase SMALL H Urine WBC (Auto) 10 Urine RBC (Auto) 28 01/14/19 01/15/19 01/15/19 19:20 00:10 00:10 Creatine Kinase 96 CK-MB (CK-2) 0.92 Troponin I < 0.012 < 0.012 NT-Pro-B Natriuret Pep 94 01/15/19 01/15/19 01/15/19 05:28 05:28 11:25 Creatine Kinase 105 89 CK-MB (CK-2) 1.09 Troponin I < 0.012 NT-Pro-B Natriuret Pep 01/15/19 11:25 Creatine Kinase CK-MB (CK-2) 1.28 Troponin I < 0.012 NT-Pro-B Natriuret Pep Impressions: Chest X-Ray 01/14/19 20:44 IMPRESSION: 1. No acute infiltrates. 2. Previous sternotomy. Chest CT 01/15/19 00:00 IMPRESSION: NO SIGNIFICANT FINDING ON NON-CONTRASTED CHEST CT. Assessment & Plan - Diagnosis (1) Acute bronchospasm Is this a current diagnosis for this admission?: Yes Plan: She has acute bronchospasm, differential diagnosis include asthma, COPD, viral bronchitis, a full PFT will be ordered, treated with bronchodilators (2) Erythema intertrigo Is this a current diagnosis for this admission?: Yes Plan: Treat with topical antifungal (3) Morbid obesity Is this a current diagnosis for this admission?: Yes (4) T2DM (type 2 diabetes mellitus) Qualifiers: Diabetes mellitus oysterman insulin use: with oysterman use Diabetes mellitus complication status: with neurologic complications Diabetes mellitus complication detail: with polyneuropathy Qualified Code(s): E11.42 - Type 2 diabetes mellitus with diabetic polyneuropathy; Z79.4 - oysterman (current) use of insulin Is this a current diagnosis for this admission?: Yes
[2019-01-15] MEDS ORDERED: NYSTATIN TOPICAL POWDER 15 GM TP ONE (21:15)
[2019-01-15] MEDS: ATORVASTATIN CALCIUM 10 MG TABLET PO SCH (22:00)
--- NOTE | 2019-01-16 00:32 | RADIOLOGY REPORT (SQ) ---
EXAM DESCRIPTION: NM LUNG VENTILATION PERFUSION COMPLETED DATE/TME: 01/15/2019 00:00 CLINICAL HISTORY: 78 years Female, increased d-dimer COMPARISON: CT, same day. RADIONUCLIDE AND DOSE: 5.39-mCi of Tc99m MAA (perfusion), IV. 30.9-mCi of Tc99m DTPA (ventilation), aerosal. LIMITATIONS: Ventilation phase not effectively performed; patient unable to maintain proper seal for evaluation. Findings Perfusion defect of the superior segment of the left lower lobe. There is no corresponding CT abnormality. Impression Intermediate probability for pulmonary embolus. Limitation: Incomplete ventilation scan.
[2019-01-16] MEDS ORDERED: ACETAMINOPHEN 325 MG TABLET PO PRN (00:51)
[2019-01-16] MEDS ORDERED: HEPARIN SOD (PORCINE) 1,000 UNIT/ML 10 ML VIAL IV PRN (01:30)
[2019-01-16 01:35] LABS: ABSOLUTE BASOPHILS # (AUTO) 0.1 10^3/uL (0.0-0.2); ABSOLUTE LYMPHOCYTES (AUTO) 1.8 10^3/uL (0.5-4.7); ABSOLUTE MONOCYTES (AUTO) 0.7 10^3/uL (0.1-1.4); HEMATOCRIT 41.4 % (36.0-47.0); HEMOGLOBIN 13.6 g/dL (12.0-15.5); LYMPHOCYTES % (AUTO) 23.3 % (13-45); MEAN CORPUSCULAR HEMOGLOBIN 27.5 pg (27.0-33.4); MEAN CORPUSCULAR HGB CONC 32.9 g/dL (32.0-36.0); MEAN CORPUSCULAR VOLUME 84 fl (80-97); MONOCYTES % (AUTO) 9.6 % (3-13); PLATELET COUNT 226 10^3/uL (150-450); RED BLOOD COUNT 4.95 10^6/uL (3.72-5.28); RED CELL DISTRIBUTION WIDTH 14.2 % (11.5-14.0); SEGMENTED NEUTROPHILS % (AUTO) 66.1 % (42-78); TOTAL CELLS COUNTED % (AUTO) 100 %; WHITE BLOOD COUNT 7.5 10^3/uL (4.0-10.5)
[2019-01-16 01:45] LABS: INTERNATIONAL RATION (INR) 0.84; PARTIAL THROMBOPLASTIN TIME 30.8 SEC (23.5-35.8)
[2019-01-16] MEDS: HEPARIN SODIUM,PORCINE/D5W 25,000 UNIT/250 ML RTUINJ IV PRN ×2 (02:38→17:14)
[2019-01-16] MEDS ORDERED: (PENDING PHARMACY ID) (Empagliflozin [Jardiance] 25 MG) PO SCH (08:00)
[2019-01-16 08:24] LABS: APPEARANCE,URINE SLIGHTLY-CLOUDY; BILIRUBIN,URINE NEGATIVE (NEGATIVE); COLOR,URINE YELLOW; GLUCOSE, URINE NEGATIVE (NEGATIVE); KETONES,URINE NEGATIVE (NEGATIVE); LEUKOCYTE ESTERASE,URINE NEGATIVE (NEGATIVE); NITRITE,URINE NEGATIVE (NEGATIVE); PROTEIN,URINE NEGATIVE (NEGATIVE); URINE SPECIFIC GRAVITY 1.006; UROBILINOGEN,URINE NEGATIVE mg/dL (<2.0)
[2019-01-16] MEDS: HYDROCHLOROTHIAZIDE 25 MG TABLET PO SCH (10:00)
[2019-01-16] MEDS: CHOLECALCIFEROL (D3) 1,000 UNIT TABLET PO SCH (10:00)
[2019-01-16] MEDS: AMLODIPINE BESYLATE 10 MG TABLET PO SCH (10:01)
[2019-01-16] MEDS: METOPROLOL SUCCINATE 50 MG TAB.SR.24H PO SCH (10:01)
[2019-01-16] MEDS: LOSARTAN POTASSIUM 50 MG TABLET PO SCH (10:01)
[2019-01-16] MEDS: ASPIRIN 81 MG TABLET, ENT COATED PO SCH (10:01)
[2019-01-16] MEDS: METFORMIN HCL 500 MG TABLET PO SCH ×2 (10:02→17:26)
[2019-01-16] MEDS: INSULIN LISPRO 100 UNIT/ML 3 ML VIAL SUBCUT SCH ×7 (10:02→21:47)
[2019-01-16] MEDS: NYSTATIN TOPICAL POWDER 15 GM TP SCH ×2 (10:03→17:27)
[2019-01-16 10:28] LABS: ABSOLUTE LYMPHOCYTES (AUTO) 2.2 10^3/uL (0.5-4.7); ABSOLUTE MONOCYTES (AUTO) 0.7 10^3/uL (0.1-1.4); ABSOLUTE NEUT (AUTO) 4.9 10^3/uL (1.7-8.2); BASOPHILS % (AUTO) 0.2 % (0-2); EOSINOPHILS % (AUTO) 0.5 % (0-6); HEMATOCRIT 42.5 % (36.0-47.0); LYMPHOCYTES % (AUTO) 28.2 % (13-45); MEAN CORPUSCULAR HEMOGLOBIN 27.8 pg (27.0-33.4); MEAN CORPUSCULAR VOLUME 84 fl (80-97); MONOCYTES % (AUTO) 8.5 % (3-13); PLATELET COUNT 229 10^3/uL (150-450); RED BLOOD COUNT 5.04 10^6/uL (3.72-5.28); RED CELL DISTRIBUTION WIDTH 14.4 % (11.5-14.0); SEGMENTED NEUTROPHILS % (AUTO) 62.6 % (42-78); TOTAL CELLS COUNTED % (AUTO) 100 %; WHITE BLOOD COUNT 7.7 10^3/uL (4.0-10.5)
[2019-01-16 10:58] LABS: ALANINE AMINOTRANSFERASE 37 U/L (9-52); ALBUMIN 3.5 g/dL (3.5-5.0); ALKALINE PHOSPHATASE 104 U/L (38-126); ANION GAP 5 (5-19); ASPARTATE AMINO TRANSFERASE 47 U/L (14-36); BILIRUBIN,DIRECT 0.3 mg/dL (0.0-0.4); BILIRUBIN,TOTAL 0.5 mg/dL (0.2-1.3); BLOOD UREA NITROGEN 45 mg/dL (7-20); CALCIUM 9.7 mg/dL (8.4-10.2); CARBON DIOXIDE 32 mmol/L (22-30); CHLORIDE 99 mmol/L (98-107); GLUCOSE 172 mg/dL (75-110); POTASSIUM 4.2 mmol/L (3.6-5.0); SODIUM 136.3 mmol/L (137-145); TOTAL PROTEIN 7.2 g/dL (6.3-8.2)
--- NOTE | 2019-01-16 17:35 | RADIOLOGY REPORT (SQ) ---
EXAM DESCRIPTION: CTA CHEST COMPLETED DATE/TIME: 01/16/2019 5:03 pm REASON FOR STUDY: r/o PE COMPARISON: None. TECHNIQUE: CT scan of the chest performed using helical scanning technique with dynamic intravenous contrast injection. Images reviewed with lung, soft tissue and bone windows. Reconstructed coronal and sagittal MPR images reviewed. Additional 3 dimensional post-processing performed to develop Maximal Intensity Projection images (MT P). All images stored on PACS. All CT scanners at this facility use dose modulation, iterative reconstruction, and/or weight based d osing when appropriate to reduce radiation dose to as low as reasonably achievable (ALARA). [facility]: Dose Right [facility]: CareDose [facility]: Dose Right [facility]: Teradose 4D [facility]: [facility] CONTRAST TYPE AND DOSE: contrast/concentration: Isovue 350.00 mg/ml; Total Contrast Delivered: 82.0 ml; Total Saline Delivered: 101.5 ml Contrast bolus optimized for the pulmonary arteries. Not diagnostic for the aorta. RENAL FUNCTION: Creatinine = 1.22 RADIATION DOSE: CT Rad equipment meets quality standard of care and radiation dose reduction techniq ues were employed. CTDIvol: 30.2 - 49.6 mGy. DLP: 949 mGy-cm. . LIMITATIONS: None. FINDINGS: LUNGS AND PLEURA: There is some consolidation in the right lung base with some scarring as well. AORTA AND GREAT VESSELS: No aneurysm. Contrast bolus not optimized for the aorta. HEART: No pericardial effusion. Prior CABG. PULMONARY ARTERIES: There is an acute thrombus in the right lower lobe pulmonary artery extending int o the posterior basilar and lateral basilar segmental arteries. HILAR AND MEDIASTINAL STRUCTURES: No identified masses or abnormal nodes. HARDWARE: None in the chest. UPPER ABDOMEN: No significant findings. Limited exam. THYROID AND OTHER SOFT TISSUES: No masses. No adenopathy. BONES: No acute or significant finding. 3D MIPS: Confirm above findings. OTHER: No other significant finding. IMPRESSION: Acute pulmonary embolus in the right lower lobe pulmonary artery extending into the post erior basilar and lateral basilar segments. COMMENT: Quality ID # [id number]: Final reports with documentation of one or more dose reduction techniques (e.g., Automated exposure control, adjustment of the mA and/or kV according to patient size, use of iterative reconstruction technique) TECHNICAL DOCUMENTATION: JOB ID: [id number] 1588[employer]- All Rights Reserved Reading location - IP/workstation name: [email or web address]
--- NOTE | 2019-01-16 18:33 | PDOC PROGRESS REPORT ---
Subjective Progress Note for:: 01/16/19 Subjective:: Patient was seen by the bedside, she was admitted yesterday for acute bronchospasm, the etiology was not clear, pulmonary embolism was suspected, d- dimer was ordered, it was elevated, VQ scan was intermediate probability for PE, a CT angiogram of the chest was done today demonstrated acute thrombosis in the right lower lobe. She already started on heparin last night Reason For Visit: ACUTE COPD EXACERBATION Physical Exam Vital Signs: Temp Pulse Resp BP Pulse Ox 98.4 F 86 16 106/65 98 01/16/19 15:33 01/16/19 16:00 01/16/19 16:00 01/16/19 15:33 01/16/19 16:00 Intake & Output 01/15/19 01/16/19 01/17/19 06:59 06:59 06:59 Intake Total 536 923 Balance 536 923 Weight 95.1 kg 96.3 kg General appearance: PRESENT: mild distress Eye exam: PRESENT: PERRLA Respiratory exam: PRESENT: rhonchi Cardiovascular exam: PRESENT: +S1, +S2 GI/Abdominal exam: PRESENT: soft Neurological exam: PRESENT: alert, CN II-XII grossly intact Results Laboratory Results: 01/16/19 09:13 01/16/19 09:13 01/16/19 01/16/19 01/16/19 01:26 07:55 09:13 WBC 7.5 7.7 RBC 4.95 5.04 Hgb 13.6 14.0 Hct 41.4 42.5 MCV 84 84 MCH 27.5 27.8 MCHC 32.9 33.0 RDW 14.2 H 14.4 H Plt Count 226 229 Seg Neutrophils % 66.1 62.6 Lymphocytes % 23.3 28.2 Monocytes % 9.6 8.5 Eosinophils % 0.0 0.5 Basophils % 1.0 0.2 Absolute Neutrophils 5.0 4.9 Absolute Lymphocytes 1.8 2.2 Absolute Monocytes 0.7 0.7 Absolute Eosinophils 0.0 0.0 Absolute Basophils 0.1 0.0 Sodium Potassium Chloride Carbon Dioxide Anion Gap BUN Creatinine Est GFR ( Amer) Est GFR (Non-Af Amer) Glucose Calcium Total Bilirubin AST ALT Alkaline Phosphatase Total Protein Albumin Urine Color YELLOW Urine Appearance SLIGHTLY-CLOUDY Urine pH 5.0 Ur Specific [place] 1.006 Urine Protein NEGATIVE Urine Glucose (UA) NEGATIVE Urine Ketones NEGATIVE Urine Blood SMALL H Urine Nitrite NEGATIVE Ur Leukocyte Esterase NEGATIVE Urine WBC (Auto) 1 Urine RBC (Auto) 1 Stool Occult Blood 01/16/19 01/16/19 09:13 10:45 WBC RBC Hgb Hct MCV MCH MCHC RDW Plt Count Seg Neutrophils % Lymphocytes % Monocytes % Eosinophils % Basophils % Absolute Neutrophils Absolute Lymphocytes Absolute Monocytes Absolute Eosinophils Absolute Basophils Sodium 136.3 L Potassium 4.2 Chloride 99 Carbon Dioxide 32 H Anion Gap 5 BUN 45 H Creatinine 1.22 Est GFR ( Amer) 51 L Est GFR (Non-Af Amer) 43 L Glucose 172 H Calcium 9.7 Total Bilirubin 0.5 AST 47 H ALT 37 Alkaline Phosphatase 104 Total Protein 7.2 Albumin 3.5 Urine Color Urine Appearance Urine pH Ur Specific [place] Urine Protein Urine Glucose (UA) Urine Ketones Urine Blood Urine Nitrite Ur Leukocyte Esterase Urine WBC (Auto) Urine RBC (Auto) Stool Occult Blood NEGATIVE 01/14/19 01/15/19 01/15/19 19:20 00:10 00:10 Creatine Kinase 96 CK-MB (CK-2) 0.92 Troponin I < 0.012 < 0.012 NT-Pro-B Natriuret Pep 94 01/15/19 01/15/19 01/15/19 05:28 05:28 11:25 Creatine Kinase 105 89 CK-MB (CK-2) 1.09 Troponin I < 0.012 NT-Pro-B Natriuret Pep 01/15/19 11:25 Creatine Kinase CK-MB (CK-2) 1.28 Troponin I < 0.012 NT-Pro-B Natriuret Pep Impressions: Chest X-Ray 01/14/19 20:44 IMPRESSION: 1. No acute infiltrates. 2. Previous sternotomy. Chest CT 01/15/19 00:00 IMPRESSION: NO SIGNIFICANT FINDING ON NON-CONTRASTED CHEST CT. Chest/Abdomen CTA 01/16/19 00:00 IMPRESSION: Acute pulmonary embolus in the right lower lobe pulmonary artery extending into the posterior basilar and lateral basilar segments. Assessment & Plan - Diagnosis (1) Acute pulmonary embolism Qualifiers: Pulmonary embolism type: unspecified Acute cor pulmonale presence: without acute cor pulmonale Qualified Code(s): I26.99 - Other pulmonary embolism without acute cor pulmonale Is this a current diagnosis for this admission?: Yes Plan: Continue IV heparin (2) Acute bronchospasm Is this a current diagnosis for this admission?: Yes (3) Erythema intertrigo Is this a current diagnosis for this admission?: Yes Plan: Treat with topical antifungal (4) Morbid obesity Is this a current diagnosis for this admission?: Yes (5) T2DM (type 2 diabetes mellitus) Qualifiers: Diabetes mellitus terminal worker insulin use: with intermediate use Diabetes mellitus complication status: with neurologic complications Diabetes mellitus complication detail: with polyneuropathy Qualified Code(s): E11.42 - Type 2 diabetes mellitus with diabetic polyneuropathy; Z79.4 - local intermodal truck driver (current) use of insulin Is this a current diagnosis for this admission?: Yes Plan: Continue treatment
[2019-01-16] MEDS ORDERED: ONDANSETRON 4 MG TAB.RAPDIS PO PRN (20:24)
[2019-01-16] MEDS: ATORVASTATIN CALCIUM 10 MG TABLET PO SCH (21:40)
[2019-01-17 04:34] LABS: ABSOLUTE BASOPHILS # (AUTO) 0.1 10^3/uL (0.0-0.2); ABSOLUTE EOSINOPHILS # (AUTO) 0.1 10^3/uL (0.0-0.6); ABSOLUTE MONOCYTES (AUTO) 0.6 10^3/uL (0.1-1.4); ABSOLUTE NEUT (AUTO) 3.4 10^3/uL (1.7-8.2); EOSINOPHILS % (AUTO) 1.3 % (0-6); HEMATOCRIT 40.5 % (36.0-47.0); HEMOGLOBIN 13.3 g/dL (12.0-15.5); LYMPHOCYTES % (AUTO) 33.3 % (13-45); MEAN CORPUSCULAR HGB CONC 32.9 g/dL (32.0-36.0); MEAN CORPUSCULAR VOLUME 85 fl (80-97); MONOCYTES % (AUTO) 9.5 % (3-13); PLATELET COUNT 204 10^3/uL (150-450); RED BLOOD COUNT 4.76 10^6/uL (3.72-5.28); RED CELL DISTRIBUTION WIDTH 14.4 % (11.5-14.0); SEGMENTED NEUTROPHILS % (AUTO) 54.9 % (42-78); TOTAL CELLS COUNTED % (AUTO) 100 %; WHITE BLOOD COUNT 6.1 10^3/uL (4.0-10.5)
[2019-01-17 05:03] LABS: ALANINE AMINOTRANSFERASE 38 U/L (9-52); ALBUMIN 3.1 g/dL (3.5-5.0); ALKALINE PHOSPHATASE 86 U/L (38-126); ASPARTATE AMINO TRANSFERASE 21 U/L (14-36); BILIRUBIN,DIRECT 0.2 mg/dL (0.0-0.4); BILIRUBIN,TOTAL 0.3 mg/dL (0.2-1.3); BLOOD UREA NITROGEN 43 mg/dL (7-20); CALCIUM 9.4 mg/dL (8.4-10.2); CARBON DIOXIDE 34 mmol/L (22-30); CHLORIDE 100 mmol/L (98-107); GLUCOSE 160 mg/dL (75-110); POTASSIUM 4.6 mmol/L (3.6-5.0); SODIUM 137.2 mmol/L (137-145); TOTAL PROTEIN 6.3 g/dL (6.3-8.2)
[2019-01-17 05:20] LABS: ANION GAP 3 (5-19)
[2019-01-17] MEDS: INSULIN LISPRO 100 UNIT/ML 3 ML VIAL SUBCUT SCH ×7 (08:49→22:33)
[2019-01-17] MEDS: AMLODIPINE BESYLATE 10 MG TABLET PO SCH (08:58)
[2019-01-17] MEDS: HYDROCHLOROTHIAZIDE 25 MG TABLET PO SCH (08:59)
[2019-01-17] MEDS: ASPIRIN 81 MG TABLET, ENT COATED PO SCH (09:00)
[2019-01-17] MEDS: LOSARTAN POTASSIUM 50 MG TABLET PO SCH (09:00)
[2019-01-17] MEDS: METOPROLOL SUCCINATE 50 MG TAB.SR.24H PO SCH (09:00)
[2019-01-17] MEDS: NYSTATIN TOPICAL POWDER 15 GM TP SCH ×2 (09:03→17:13)
[2019-01-17] MEDS: CHOLECALCIFEROL (D3) 1,000 UNIT TABLET PO SCH (09:03)
--- NOTE | 2019-01-17 21:00 | PDOC PROGRESS REPORT ---
Subjective Progress Note for:: 01/17/19 Subjective:: Patient seen by the bedside, she has no new complaints she has mild bloody secretion from the nose, she is presently on IV heparin for the treatment of pulmonary embolism Reason For Visit: ACUTE COPD EXACERBATION Physical Exam Vital Signs: Temp Pulse Resp BP Pulse Ox 97.9 F 77 14 121/59 L 95 01/17/19 16:32 01/17/19 19:00 01/17/19 16:32 01/17/19 16:32 01/17/19 16:32 Intake & Output 01/16/19 01/17/19 01/18/19 06:59 06:59 06:59 Intake Total 536 1321 810 Output Total 550 Balance 536 771 810 Weight 96.3 kg 96.9 kg General appearance: PRESENT: no acute distress Eye exam: PRESENT: PERRLA Respiratory exam: PRESENT: clear to auscultation kera Cardiovascular exam: PRESENT: +S1, +S2 GI/Abdominal exam: PRESENT: soft Neurological exam: PRESENT: alert, CN II-XII grossly intact Results Laboratory Results: 01/17/19 04:22 01/17/19 04:22 01/17/19 01/17/19 04:22 04:22 WBC 6.1 RBC 4.76 Hgb 13.3 Hct 40.5 MCV 85 MCH 28.0 MCHC 32.9 RDW 14.4 H Plt Count 204 Seg Neutrophils % 54.9 Lymphocytes % 33.3 Monocytes % 9.5 Eosinophils % 1.3 Basophils % 1.0 Absolute Neutrophils 3.4 Absolute Lymphocytes 2.0 Absolute Monocytes 0.6 Absolute Eosinophils 0.1 Absolute Basophils 0.1 Sodium 137.2 Potassium 4.6 Chloride 100 Carbon Dioxide 34 H Anion Gap 3 L BUN 43 H Creatinine 1.27 H Est GFR ( Amer) 49 L Est GFR (Non-Af Amer) 41 L Glucose 160 H Calcium 9.4 Total Bilirubin 0.3 AST 21 ALT 38 Alkaline Phosphatase 86 Total Protein 6.3 Albumin 3.1 L 01/14/19 01/15/19 01/15/19 19:20 00:10 00:10 Creatine Kinase 96 CK-MB (CK-2) 0.92 Troponin I < 0.012 < 0.012 NT-Pro-B Natriuret Pep 94 01/15/19 01/15/19 01/15/19 05:28 05:28 11:25 Creatine Kinase 105 89 CK-MB (CK-2) 1.09 Troponin I < 0.012 NT-Pro-B Natriuret Pep 01/15/19 11:25 Creatine Kinase CK-MB (CK-2) 1.28 Troponin I < 0.012 NT-Pro-B Natriuret Pep Impressions: Chest X-Ray 01/14/19 20:44 IMPRESSION: 1. No acute infiltrates. 2. Previous sternotomy. Chest CT 01/15/19 00:00 IMPRESSION: NO SIGNIFICANT FINDING ON NON-CONTRASTED CHEST CT. Chest/Abdomen CTA 01/16/19 00:00 IMPRESSION: Acute pulmonary embolus in the right lower lobe pulmonary artery e xtending into the posterior basilar and lateral basilar segments. Assessment & Plan - Diagnosis (1) Acute pulmonary embolism Qualifiers: Pulmonary embolism type: unspecified Acute cor pulmonale presence: without acute cor pulmonale Qualified Code(s): I26.99 - Other pulmonary embolism without acute cor pulmonale Is this a current diagnosis for this admission?: Yes Plan: Continue IV heparin for a total of 5 days then will transition to p.o. newer anticoagulants (2) Acute bronchospasm Is this a current diagnosis for this admission?: Yes (3) Erythema intertrigo Is this a current diagnosis for this admission?: Yes Plan: Treat with topical antifungal (4) Morbid obesity Is this a current diagnosis for this admission?: Yes (5) T2DM (type 2 diabetes mellitus) Qualifiers: Diabetes mellitus penitentiary insulin use: with oysterman use Diabetes mellitus complication status: with neurologic complications Diabetes mellitus complication detail: with polyneuropathy Qualified Code(s): E11.42 - Type 2 diabetes mellitus with diabetic polyneuropathy; Z79.4 - snf (current) use of insulin Is this a current diagnosis for this admission?: Yes Plan: Continue treatment
[2019-01-17] MEDS: ATORVASTATIN CALCIUM 10 MG TABLET PO SCH (22:34)
[2019-01-17] MEDS: HEPARIN SODIUM,PORCINE/D5W 25,000 UNIT/250 ML RTUINJ IV PRN (23:44)
[2019-01-18 01:12] LABS: APPEARANCE,URINE CLEAR; BILIRUBIN,URINE NEGATIVE (NEGATIVE); COLOR,URINE YELLOW; GLUCOSE, URINE NEGATIVE (NEGATIVE); KETONES,URINE NEGATIVE (NEGATIVE); LEUKOCYTE ESTERASE,URINE NEGATIVE (NEGATIVE); NITRITE,URINE POSITIVE (NEGATIVE); PROTEIN,URINE NEGATIVE (NEGATIVE); URINE SPECIFIC GRAVITY 1.012; UROBILINOGEN,URINE NEGATIVE mg/dL (<2.0)
[2019-01-18] MEDS: HYDROCHLOROTHIAZIDE 25 MG TABLET PO SCH (08:00)
[2019-01-18] MEDS: INSULIN LISPRO 100 UNIT/ML 3 ML VIAL SUBCUT SCH ×7 (08:00→23:17)
[2019-01-18] MEDS: AMLODIPINE BESYLATE 10 MG TABLET PO SCH (08:00)
[2019-01-18] MEDS: LOSARTAN POTASSIUM 50 MG TABLET PO SCH (08:00)
[2019-01-18] MEDS ORDERED: HEPARIN SOD (PORCINE) 1,000 UNIT/ML 10 ML VIAL IV PRN (10:00)
[2019-01-18] MEDS: METOPROLOL SUCCINATE 50 MG TAB.SR.24H PO SCH (13:52)
[2019-01-18] MEDS: ASPIRIN 81 MG TABLET, ENT COATED PO SCH (13:52)
[2019-01-18] MEDS: NYSTATIN TOPICAL POWDER 15 GM TP SCH ×2 (13:55→21:01)
[2019-01-18] MEDS: CHOLECALCIFEROL (D3) 1,000 UNIT TABLET PO SCH (14:05)
--- NOTE | 2019-01-18 20:30 | PDOC PROGRESS REPORT ---
Subjective Progress Note for:: 01/18/19 Subjective:: Patient seen by the bedside, she is on IV heparin for PE Reason For Visit: ACUTE COPD EXACERBATION Physical Exam Vital Signs: Temp Pulse Resp BP Pulse Ox 98.2 F 98 21 H 104/58 L 100 01/18/19 15:32 01/18/19 15:32 01/18/19 15:32 01/18/19 15:32 01/18/19 15:32 Intake & Output 01/17/19 01/18/19 01/19/19 06:59 06:59 06:59 Intake Total 1321 948 674 Output Total 550 300 730 Balance 771 648 -56 Weight 96.9 kg 96.9 kg General appearance: PRESENT: no acute distress Eye exam: PRESENT: PERRLA Respiratory exam: PRESENT: clear to auscultation kera Cardiovascular exam: PRESENT: +S1, +S2 GI/Abdominal exam: PRESENT: soft Neurological exam: PRESENT: alert Results Laboratory Results: 01/17/19 04:22 01/17/19 04:22 01/18/19 00:55 Urine Color YELLOW Urine Appearance CLEAR Urine pH 5.0 Ur Specific [place] 1.012 Urine Protein NEGATIVE Urine Glucose (UA) NEGATIVE Urine Ketones NEGATIVE Urine Blood NEGATIVE Urine Nitrite POSITIVE H Ur Leukocyte Esterase NEGATIVE Urine WBC (Auto) 0 01/14/19 01/15/19 01/15/19 19:20 00:10 00:10 Creatine Kinase 96 CK-MB (CK-2) 0.92 Troponin I < 0.012 < 0.012 NT-Pro-B Natriuret Pep 94 01/15/19 01/15/19 01/15/19 05:28 05:28 11:25 Creatine Kinase 105 89 CK-MB (CK-2) 1.09 Troponin I < 0.012 NT-Pro-B Natriuret Pep 01/15/19 11:25 Creatine Kinase CK-MB (CK-2) 1.28 Troponin I < 0.012 NT-Pro-B Natriuret Pep Impressions: Chest X-Ray 01/14/19 20:44 IMPRESSION: 1. No acute infiltrates. 2. Previous sternotomy. Chest CT 01/15/19 00:00 IMPRESSION: NO SIGNIFICANT FINDING ON NON-CONTRASTED CHEST CT. Chest/Abdomen CTA 01/16/19 00:00 IMPRESSION: Acute pulmonary embolus in the right lower lobe pulmonary artery extending into the posterior basilar and lateral basilar segments. Assessment & Plan - Diagnosis (1) Acute pulmonary embolism Qualifiers: Pulmonary embolism type: unspecified Acute cor pulmonale presence: without acute cor pulmonale Qualified Code(s): I26.99 - Other pulmonary embolism without acute cor pulmonale Is this a current diagnosis for this admission?: Yes Plan: Continue IV heparin for a total of 5 days then will transition to p.o. newer anticoagulants (2) Acute bronchospasm Is this a current diagnosis for this admission?: Yes (3) Erythema intertrigo Is this a current diagnosis for this admission?: Yes Plan: continue topical antifungal (4) Morbid obesity Is this a current diagnosis for this admission?: Yes (5) T2DM (type 2 diabetes mellitus) Qualifiers: Diabetes mellitus moth exterminator insulin use: with moth exterminator use Diabetes mellitus complication status: with neurologic complications Diabetes mellitus complication detail: with polyneuropathy Qualified Code(s): E11.42 - Type 2 diabetes mellitus with diabetic polyneuropathy; Z79.4 - residential (current) use of insulin Is this a current diagnosis for this admission?: Yes
[2019-01-18 21:16] LABS: ALANINE AMINOTRANSFERASE 37 U/L (9-52); ALBUMIN 3.1 g/dL (3.5-5.0); ALKALINE PHOSPHATASE 85 U/L (38-126); ANION GAP 7 (5-19); ASPARTATE AMINO TRANSFERASE 21 U/L (14-36); BILIRUBIN,DIRECT 0.2 mg/dL (0.0-0.4); BILIRUBIN,TOTAL 0.2 mg/dL (0.2-1.3); BLOOD UREA NITROGEN 51 mg/dL (7-20); CALCIUM 9.5 mg/dL (8.4-10.2); CARBON DIOXIDE 29 mmol/L (22-30); CHLORIDE 100 mmol/L (98-107); POTASSIUM 4.6 mmol/L (3.6-5.0); SODIUM 135.7 mmol/L (137-145); TOTAL PROTEIN 6.1 g/dL (6.3-8.2)
[2019-01-18 21:25] LABS: GLUCOSE 69 mg/dL (75-110)
[2019-01-18] MEDS: ATORVASTATIN CALCIUM 10 MG TABLET PO SCH (23:18)
[2019-01-19] MEDS: HEPARIN SODIUM,PORCINE/D5W 25,000 UNIT/250 ML RTUINJ IV PRN ×2 (06:15→13:05)
[2019-01-19] MEDS: INSULIN LISPRO 100 UNIT/ML 3 ML VIAL SUBCUT SCH ×7 (09:01→21:47)
[2019-01-19] MEDS: CHOLECALCIFEROL (D3) 1,000 UNIT TABLET PO SCH (09:30)
[2019-01-19] MEDS: LOSARTAN POTASSIUM 50 MG TABLET PO SCH (09:31)
[2019-01-19] MEDS: METFORMIN HCL 500 MG TABLET PO SCH ×2 (09:31→17:14)
[2019-01-19] MEDS: METOPROLOL SUCCINATE 50 MG TAB.SR.24H PO SCH (09:31)
[2019-01-19] MEDS: ASPIRIN 81 MG TABLET, ENT COATED PO SCH (09:31)
[2019-01-19] MEDS: HYDROCHLOROTHIAZIDE 25 MG TABLET PO SCH (09:32)
[2019-01-19] MEDS: AMLODIPINE BESYLATE 10 MG TABLET PO SCH (09:32)
[2019-01-19] MEDS: NYSTATIN TOPICAL POWDER 15 GM TP SCH ×2 (09:34→17:17)
[2019-01-19 10:23] LABS: APPEARANCE,URINE SLIGHTLY-CLOUDY; BILIRUBIN,URINE NEGATIVE (NEGATIVE); COLOR,URINE YELLOW; GLUCOSE, URINE NEGATIVE (NEGATIVE); KETONES,URINE NEGATIVE (NEGATIVE); LEUKOCYTE ESTERASE,URINE TRACE (NEGATIVE); NITRITE,URINE NEGATIVE (NEGATIVE); PROTEIN,URINE NEGATIVE (NEGATIVE); URINE SPECIFIC GRAVITY 1.009; UROBILINOGEN,URINE NEGATIVE mg/dL (<2.0)
[2019-01-19 15:12] LABS: ALANINE AMINOTRANSFERASE 31 U/L (9-52); ALBUMIN 3.6 g/dL (3.5-5.0); ALKALINE PHOSPHATASE 90 U/L (38-126); ANION GAP 7 (5-19); ASPARTATE AMINO TRANSFERASE 31 U/L (14-36); BILIRUBIN,DIRECT 0.2 mg/dL (0.0-0.4); BILIRUBIN,TOTAL 0.4 mg/dL (0.2-1.3); BLOOD UREA NITROGEN 50 mg/dL (7-20); CALCIUM 9.8 mg/dL (8.4-10.2); CARBON DIOXIDE 33 mmol/L (22-30); CHLORIDE 99 mmol/L (98-107); GLUCOSE 84 mg/dL (75-110); POTASSIUM 4.5 mmol/L (3.6-5.0)
--- NOTE | 2019-01-19 16:19 | Pulmonary Function Test ---
Pulmonary Function Test Date of Procedure:: 01/19/19 INDICATION:: Cough Referring Provider: Dr. Ghada Myers Vp Business Development: Tiffany Brown DIRECTOR TEEN POST, SILK SCREEN PROCESSOR - Report Spirometry: FVC 1.24 L 50% postbronchodilator 1.01 L 41% FEV1 0.86 L 47% postbronchodilator 0.84 L 46% FEV1/FVC % 69 postbronchodilator 83 predicted 81 FEF 25-75% 0.53 L 35% postbronchodilator 0.89 L 59% Lung Volume: Total lung capacity 1.47 L 32% Vital capacity 1.24 L 50% Inspiratory capacity 0.78 L FRC N2 0.69 L 33% ERV 0.18 L RV 0.24 L 12% RV/TLC % 16 predicted 43 Diffusion Capactity: Diffusion capacity 6.1 27% DLCO/VA 3.86 112% Impression: Moderate obstructive ventilatory defect. Insignificant response to bronchodilator therapy. This in and of itself does not preclude clinical trial of bronchodilator therapy. Severe restrictive ventilatory defect. (Restrictive defect may mask the degree of obstruction.) No hyperinflation or air trapping. Severe decrease in diffusion capacity.
--- NOTE | 2019-01-19 18:05 | PDOC PROGRESS REPORT ---
Subjective Progress Note for:: 01/19/19 Subjective:: Patient seen by the bedside, she is on IV heparin, the intent is to continue IV heparin for a total of 5 days and then transition to p.o. one of the newer anticoagulant, Eliquis, 5 mg p.o. twice daily Reason For Visit: ACUTE COPD EXACERBATION Physical Exam Vital Signs: Temp Pulse Resp BP Pulse Ox 97.4 F 92 16 100/47 L 95 01/19/19 16:00 01/19/19 16:00 01/19/19 16:00 01/19/19 16:00 01/19/19 16:00 Intake & Output 01/18/19 01/19/19 01/20/19 06:59 06:59 06:59 Intake Total 948 1437 494 Output Total 300 730 Balance 648 707 494 Weight 96.9 kg 93.3 kg General appearance: PRESENT: no acute distress Eye exam: PRESENT: PERRLA Respiratory exam: PRESENT: clear to auscultation kera Cardiovascular exam: PRESENT: +S1, +S2 GI/Abdominal exam: PRESENT: soft Neurological exam: PRESENT: alert, CN II-XII grossly intact Results Laboratory Results: 01/17/19 04:22 01/19/19 14:34 01/18/19 01/19/19 01/19/19 20:30 09:10 14:34 Sodium 135.7 L 139.0 Potassium 4.6 4.5 Chloride 100 99 Carbon Dioxide 29 33 H Anion Gap 7 7 BUN 51 H 50 H Creatinine 1.67 H 1.64 H Est GFR ( Amer) 36 L 37 L Est GFR (Non-Af Amer) 30 L 30 L Glucose 69 L 84 Calcium 9.5 9.8 Total Bilirubin 0.2 0.4 AST 21 31 ALT 37 31 Alkaline Phosphatase 85 90 Total Protein 6.1 L 7.0 Albumin 3.1 L 3.6 Urine Color YELLOW Urine Appearance SLIGHTLY-CLOUDY Urine pH 6.0 Ur Specific [place] 1.009 Urine Protein NEGATIVE Urine Glucose (UA) NEGATIVE Urine Ketones NEGATIVE Urine Blood NEGATIVE Urine Nitrite NEGATIVE Ur Leukocyte Esterase TRACE H Urine WBC (Auto) 6 Urine RBC (Auto) 1 01/14/19 01/15/19 01/15/19 19:20 00:10 00:10 Creatine Kinase 96 CK-MB (CK-2) 0.92 Troponin I < 0.012 < 0.012 NT-Pro-B Natriuret Pep 94 01/15/19 01/15/19 01/15/19 05:28 05:28 11:25 Creatine Kinase 105 89 CK-MB (CK-2) 1.09 Troponin I < 0.012 NT-Pro-B Natriuret Pep 01/15/19 11:25 Creatine Kinase CK-MB (CK-2) 1.28 Troponin I < 0.012 NT-Pro-B Natriuret Pep Impressions: Chest X-Ray 01/14/19 20:44 IMPRESSION: 1. No acute infiltrates. 2. Previous sternotomy. Chest CT 01/15/19 00:00 IMPRESSION: NO SIGNIFICANT FINDING ON NON-CONTRASTED CHEST CT. Chest/Abdomen CTA 01/16/19 00:00 IMPRESSION: Acute pulmonary embolus in the right lower lobe pulmonary artery extending into the posterior basilar and lateral basilar segments. Assessment & Plan - Diagnosis (1) Acute pulmonary embolism Qualifiers: Pulmonary embolism type: unspecified Acute cor pulmonale presence: without acute cor pulmonale Qualified Code(s): I26.99 - Other pulmonary embolism without acute cor pulmonale Is this a current diagnosis for this admission?: Yes Plan: Continue IV heparin for a total of 5 days then will transition to p.o. 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
[2019-01-19] MEDS: ATORVASTATIN CALCIUM 10 MG TABLET PO SCH (21:52)
[2019-01-20] MEDS: INSULIN LISPRO 100 UNIT/ML 3 ML VIAL SUBCUT SCH ×7 (10:01→21:51)
[2019-01-20] MEDS: LOSARTAN POTASSIUM 50 MG TABLET PO SCH (10:04)
[2019-01-20] MEDS: METFORMIN HCL 500 MG TABLET PO SCH ×2 (10:05→16:11)
[2019-01-20] MEDS: ASPIRIN 81 MG TABLET, ENT COATED PO SCH (10:05)
[2019-01-20] MEDS: HYDROCHLOROTHIAZIDE 25 MG TABLET PO SCH (10:08)
[2019-01-20] MEDS: METOPROLOL SUCCINATE 50 MG TAB.SR.24H PO SCH (10:08)
[2019-01-20] MEDS: AMLODIPINE BESYLATE 10 MG TABLET PO SCH (10:08)
[2019-01-20] MEDS: CHOLECALCIFEROL (D3) 1,000 UNIT TABLET PO SCH (10:09)
[2019-01-20] MEDS: HEPARIN SODIUM,PORCINE/D5W 25,000 UNIT/250 ML RTUINJ IV PRN (10:09)
[2019-01-20 12:22] LABS: ALANINE AMINOTRANSFERASE 40 U/L (9-52); ALBUMIN 2.9 g/dL (3.5-5.0); ALKALINE PHOSPHATASE 81 U/L (38-126); ASPARTATE AMINO TRANSFERASE 37 U/L (14-36); BILIRUBIN,DIRECT 0.2 mg/dL (0.0-0.4); BILIRUBIN,TOTAL 0.4 mg/dL (0.2-1.3); BLOOD UREA NITROGEN 51 mg/dL (7-20); CALCIUM 9.3 mg/dL (8.4-10.2); GLUCOSE 107 mg/dL (75-110); TOTAL PROTEIN 6.1 g/dL (6.3-8.2)
[2019-01-20] MEDS: NYSTATIN TOPICAL POWDER 15 GM TP SCH ×2 (12:26→17:20)
[2019-01-20 12:48] LABS: ANION GAP 5 (5-19); CARBON DIOXIDE 30 mmol/L (22-30); CHLORIDE 101 mmol/L (98-107); POTASSIUM 4.7 mmol/L (3.6-5.0); SODIUM 136.2 mmol/L (137-145)
[2019-01-20] MEDS: APIXABAN 5 MG TABLET PO SCH (17:19)
--- NOTE | 2019-01-20 19:47 | PDOC DISCHARGE SUMMARY ---
General - Admit/Disc Date/PCP Admission Date/Primary Care Provider: 01/15/19 01:33 ALE RODRIGUEZ MD Discharge Date: 01/21/19 - Discharge Diagnosis (1) Acute pulmonary embolism Is this a current diagnosis for this admission?: Yes (2) Acute bronchospasm Is this a current diagnosis for this admission?: Yes (3) Erythema intertrigo Is this a current diagnosis for this admission?: Yes (4) Morbid obesity Is this a current diagnosis for this admission?: Yes (5) T2DM (type 2 diabetes mellitus) Is this a current diagnosis for this admission?: Yes - Additional Information Resuscitation Status: Full Code Prescriptions: Apixaban [Eliquis 5 mg Tablet] 5 mg PO BID #60 tablet Home Medications: Amlodipine Besylate [Norvasc 10 mg Tablet] 10 mg PO QAM 01/15/19 Cholecalciferol (Vitamin D3) [Vitamin D3 5000 unit Capsule] 5,000 unit PO DAILY 01/15/19 Empagliflozin [Jardiance] 25 mg PO QAM 01/15/19 Insulin Degludec [Tresiba Flextouch U-100] 36 units SQ QPM 01/15/19 Insulin Lispro [Humalog Kwikpen U-100] 12 unit SQ MEALS 01/15/19 Losartan/Hydrochlorothiazide [Hyzaar 100-25 Tablet] 1 tab PO QAM 01/15/19 Metformin HCl [Glucophage XR 500 mg Tablet] 500 mg PO QPM 01/15/19 Metoprolol Succinate [Toprol XL 100 mg Tablet] 100 mg PO QAM 01/15/19 Pravastatin Sodium [Pravachol] 40 mg PO QPM 01/15/19 Apixaban [Eliquis 5 mg Tablet] 5 mg PO BID #60 tablet 01/20/19 Nystatin [Mycostatin Topical Powder 15 gm] 1 applic TP BID bottle 01/20/19 History of Present Illness History of Present Illness: KACI BA is a 78 year old female, She came to the emergency room for evaluation of cough and shortness of breath, she was just recently admitted in this hospital for evaluation of chest pain at the time she underwent a Cardiolite Lexiscan stress test which was negative for acute ischemia. She was discharged on 12/28/2018.The ED physician stated when she arrived in the emergency room she was wheezing, she has no smoking history she has no documented history of COPD that I know of, she is relatively new to our practice, she has a history of diabetes mellitus CVA with residual weakness, cognitive impairment. The initial chest x-ray that was done in the ER did not demonstrate any focal infiltrate subsequent CT chest was done without contrast there was no evidence of pneumonia, when I saw her on the floor she has some scattered wheeze albeit very mild.She has severe erythema intertrigo in the groin area and also submammary erythrasma Hospital Course Hospital Course: Patient was admitted for the management of pulmonary embolism, She was treated with IV heparin, There was associated bronchospasm requiring bronchodilators.She was treated for 5 days with IV heparin which correspond to 5 days of Eliquis, 10 mg p.o. twice daily which is the loading dose of Eliquis before transition to 5 mg p.o. twice daily,She has unprovoked pulmonary embolism. She would require lifelong coagulation Physical Exam Vital Signs: Temp Pulse Resp BP Pulse Ox 98.5 F 81 23 H 128/67 H 97 01/20/19 15:56 01/20/19 15:56 01/20/19 15:56 01/20/19 15:56 01/20/19 15:56 Intake & Output 01/19/19 01/20/19 01/21/19 06:59 06:59 06:59 Intake Total 1437 831 739 Output Total 730 620 Balance 707 831 119 Weight 93.3 kg General appearance: PRESENT: no acute distress, well-developed, well-nourished Head exam: PRESENT: atraumatic, normocephalic Eye exam: PRESENT: conjunctiva pink, EOMI, PERRLA Ear exam: PRESENT: normal external ear exam Mouth exam: PRESENT: moist, tongue midline Neck exam: PRESENT: full ROM Respiratory exam: PRESENT: clear to auscultation kera Cardiovascular exam: PRESENT: RRR, +S1, +S2 Vascular exam: PRESENT: normal capillary refill GI/Abdominal exam: PRESENT: normal bowel sounds, soft Rectal exam: PRESENT: deferred Neurological exam: PRESENT: alert, CN II-XII grossly intact Psychiatric exam: PRESENT: appropriate affect, normal mood Skin exam: PRESENT: dry, intact, warm Results Laboratory Results: 01/17/19 04:22 01/20/19 03:41 01/20/19 03:41 Sodium 136.2 L Potassium 4.7 Chloride 101 Carbon Dioxide 30 Anion Gap 5 BUN 51 H Creatinine 1.50 H Est GFR ( Amer) 41 L Est GFR (Non-Af Amer) 33 L Glucose 107 Calcium 9.3 Total Bilirubin 0.4 AST 37 H ALT 40 Alkaline Phosphatase 81 Total Protein 6.1 L Albumin 2.9 L 01/14/19 01/15/19 01/15/19 19:20 00:10 00:10 Creatine Kinase 96 CK-MB (CK-2) 0.92 Troponin I < 0.012 < 0.012 NT-Pro-B Natriuret Pep 94 01/15/19 01/15/19 01/15/19 05:28 05:28 11:25 Creatine Kinase 105 89 CK-MB (CK-2) 1.09 Troponin I < 0.012 NT-Pro-B Natriuret Pep 01/15/19 11:25 Creatine Kinase CK-MB (CK-2) 1.28 Troponin I < 0.012 NT-Pro-B Natriuret Pep Impressions: Chest X-Ray 01/14/19 20:44 IMPRESSION: 1. No acute infiltrates. 2. Previous sternotomy. Chest CT 01/15/19 00:00 IMPRESSION: NO SIGNIFICANT FINDING ON NON-CONTRASTED CHEST CT. Chest/Abdomen CTA 01/16/19 00:00 IMPRESSION: Acute pulmonary embolus in the right lower lobe pulmonary artery extending into the posterior basilar and lateral basilar segments. Qualifiers - * PATIENT BEING DISCHARGED WITH ANY OF THE FOLLOWING DIAGNOSIS: No
[2019-01-20] MEDS: ATORVASTATIN CALCIUM 10 MG TABLET PO SCH (21:53)
[2019-01-21] MEDS: INSULIN LISPRO 100 UNIT/ML 3 ML VIAL SUBCUT SCH ×4 (08:15→12:08)
[2019-01-21] MEDS: ASPIRIN 81 MG TABLET, ENT COATED PO SCH (08:16)
[2019-01-21] MEDS: LOSARTAN POTASSIUM 50 MG TABLET PO SCH (08:17)
[2019-01-21] MEDS: HYDROCHLOROTHIAZIDE 25 MG TABLET PO SCH (08:17)
[2019-01-21] MEDS: AMLODIPINE BESYLATE 10 MG TABLET PO SCH (08:17)
[2019-01-21] MEDS: METOPROLOL SUCCINATE 50 MG TAB.SR.24H PO SCH (08:17)
[2019-01-21] MEDS: METFORMIN HCL 500 MG TABLET PO SCH (08:18)
[2019-01-21] MEDS: NYSTATIN TOPICAL POWDER 15 GM TP SCH (11:35)
[2019-01-21] MEDS: APIXABAN 5 MG TABLET PO SCH (11:35)
[2019-01-21] MEDS: CHOLECALCIFEROL (D3) 1,000 UNIT TABLET PO SCH (11:35)
[2019-01-21 14:50] VITALS: BP 129/58
== END 2019-01-21 16:36 | disposition home or self-care (01) | DRG 176 ==
LOC: ER 17:59 → EH 01-15 01:33 → 5 01-15 03:20
PROVIDERS: ADMIT Internal Medicine; ATTEND Internal Medicine
PROC: 3E0F73Z Introduction of Anti-inflammatory into Respiratory Tract, Via Natural or Artificial Opening (ICD-10-PCS; principal; 2019-01-15)
DX: I26.99 Other pulmonary embolism without acute cor pulmonale (principal); J44.1 Chronic obstructive pulmonary disease with (acute) exacerbation; I69.959 Hemiplegia and hemiparesis following unspecified cerebrovascular disease affecting unspecified side; J98.01 Acute bronchospasm; L30.4 Erythema intertrigo; E66.01 Morbid (severe) obesity due to excess calories; I10 Essential (primary) hypertension; K21.9 Gastro-esophageal reflux disease without esophagitis; E11.42 Type 2 diabetes mellitus with diabetic polyneuropathy; Z60.2 Problems related to living alone; I69.919 Unspecified symptoms and signs involving cognitive functions following unspecified cerebrovascular disease; Z79.899 Other long term (current) drug therapy; Z90.710 Acquired absence of both cervix and uterus; Z79.82 Long term (current) use of aspirin; Z79.4 Long term (current) use of insulin; Z88.1 Allergy status to other antibiotic agents
CPT/HCPCS: 36415; 71046; 71250; 71275; 78582; 80048; 80053; 80061; 80076; 80307; 81001; 82140; 82150; 82272; 82550; 82553; 82803; 82962; 83036; 83690; 83735; 83880; 84100; 84439; 84443; 84484; 85025; 85379; 85610; 85730; 87804; 94060; 94640; 94727; 94729; 96374; 99285; A9540; A9567; J1644; J1815; J2930; J3490; J7620; Q9969; S0119

== ENCOUNTER 2019-04-16 14:33 | Emergency (ER) | payer MEDICARE, OTHER ==
[2019-04-16] MEDS ORDERED: ASPIRIN 81 MG TABLET, CHEWABLE PO ONE (14:51)
--- NOTE | 2019-04-16 14:52 | ER Document Report ---
ED Medical Screen (RME) - General Chief Complaint: Leg Pain Stated Complaint: LEG NUMBNESS Time Seen by Provider: 04/16/19 14:43 Primary Care Provider: ALE RODRIGUEZ MD [Primary Care Provider] - Follow up as needed Mode of Arrival: Wheelchair Information source: Patient, Relative - son Notes: Patient presents emergency department with complaints of bilateral leg numbness. Also reports some chest heaviness. Reports bilateral leg numbness for about a week chest heaviness this morning. Reports patient is a diabetic. Reports her sugar was 190 this morning. Son reports patient has not been taking her high blood pressure medication. Son also reports patient has been sleeping upright in a recliner. No other complaints such as fever vomiting diarrhea. I have greeted and performed a rapid initial assessment of this patient. A comprehensive ED assessment and evaluation of the patient, analysis of test results and completion of the medical decision making process will be conducted by additional ED providers. Dictation of this chart was performed using voice recognition software; therefore, there may be some unintended grammatical errors. TRAVEL OUTSIDE OF THE [place] IN LAST 30 DAYS: No - Related Data Allergies/Adverse Reactions: metronidazole [From Flagyl] Allergy (Verified 04/16/19 14:34) Metronidazole HCl [From Flagyl] Allergy (Verified 04/16/19 14:34) Past Medical History - Social History Chew tobacco use (# tins/day): No Frequency of alcohol use: None Drug Abuse: None - Past Medical History Cardiac Medical History: Reports: Hx Congestive Heart Failure, Hx Hypertension Pulmonary Medical History: Reports: Hx COPD, Hx Pneumonia Endocrine Medical History: Reports: Hx Diabetes Mellitus Type 1, Hx Diabetes Mellitus Type 2 Renal/ Medical History: Denies: Hx Peritoneal Dialysis GI Medical History: Reports: Hx Gastroesophageal Reflux Disease Musculoskeltal Medical History: Reports Hx Arthritis Psychiatric Medical History: Denies: Hx Depression Past Surgical History: Reports: Hx Appendectomy, Hx Cardiac Surgery - tumor left ventricle, Hx Hysterectomy, Other - Heart surgery - Immunizations Hx Diphtheria, Pertussis, Tetanus Vaccination: No Physical Exam - Vital signs Vitals: Temp Pulse Resp BP Pulse Ox 97.4 F 94 20 154/64 H 97 04/16/19 14:38 04/16/19 14:38 04/16/19 14:38 04/16/19 14:38 07/06/19 14:38 Course - Vital Signs Vital signs: Temp Pulse Resp BP Pulse Ox 97.4 F 94 20 154/64 H 97 04/16/19 14:38 04/16/19 14:38 04/16/19 14:38 04/16/19 14:38 04/16/19 14:38 Doctor's Discharge - Discharge Referrals: ALE RODRIGUEZ MD [Primary Care Provider] - Follow up as needed
[2019-04-16 15:32] LABS: ABSOLUTE BASOPHILS # (AUTO) 0.1 10^3/uL (0.0-0.2); ABSOLUTE EOSINOPHILS # (AUTO) 0.1 10^3/uL (0.0-0.6); ABSOLUTE LYMPHOCYTES (AUTO) 1.9 10^3/uL (0.5-4.7); ABSOLUTE MONOCYTES (AUTO) 0.5 10^3/uL (0.1-1.4); ABSOLUTE NEUT (AUTO) 3.3 10^3/uL (1.7-8.2); BASOPHILS % (AUTO) 0.9 % (0-2); HEMATOCRIT 43.9 % (36.0-47.0); HEMOGLOBIN 14.3 g/dL (12.0-15.5); LYMPHOCYTES % (AUTO) 33.1 % (13-45); MEAN CORPUSCULAR HEMOGLOBIN 27.6 pg (27.0-33.4); MEAN CORPUSCULAR HGB CONC 32.6 g/dL (32.0-36.0); MEAN CORPUSCULAR VOLUME 85 fl (80-97); MONOCYTES % (AUTO) 8.6 % (3-13); PLATELET COUNT 248 10^3/uL (150-450); RED BLOOD COUNT 5.18 10^6/uL (3.72-5.28); RED CELL DISTRIBUTION WIDTH 14.6 % (11.5-14.0); SEGMENTED NEUTROPHILS % (AUTO) 56.4 % (42-78); TOTAL CELLS COUNTED % (AUTO) 100 %; WHITE BLOOD COUNT 5.8 10^3/uL (4.0-10.5)
--- NOTE | 2019-04-16 15:41 | RADIOLOGY REPORT (SQ) ---
EXAM DESCRIPTION: CHEST 2 VIEWS COMPLETED DATE/TIME: 04/16/2019 3:16 pm REASON FOR STUDY: chest heaviness COMPARISON: Chest films 02/28/2013, 12/25/2018, 01/14/2019 CT chest 01/15/2019, 01/16/2019 EXAM PARAMETERS: NUMBER OF VIEWS: two views TECHNIQUE: Digital Frontal and Lateral radiographic views of the chest acquired. RADIATION DOSE: NA LIMITATIONS: none FINDINGS: LUNGS AND PLEURA: Volume loss and scarring in the right lower lobe with bandlike density, similar compared to 01/14/2019. No acute infiltrates. No pleural effusion. No pneumothorax. MEDIASTINUM AND HILAR STRUCTURES: No masses or contour abnormalities. HEART AND VASCULAR STRUCTURES: No cardiomegaly. Old sternotomy BONES: No acute findings. HARDWARE: None in the chest. OTHER: No other significant finding. IMPRESSION: Right lower lobe bandlike scarring or atelectasis. Old sternotomy without cardiomegaly TECHNICAL DOCUMENTATION: JOB ID: [id number] [employer]- All Rights Reserved Reading location - IP/workstation name: [email or web address]
[2019-04-16 15:50] LABS: ALANINE AMINOTRANSFERASE 22 U/L (9-52); ALKALINE PHOSPHATASE 118 U/L (38-126); ANION GAP 8 (5-19); ASPARTATE AMINO TRANSFERASE 18 U/L (14-36); BILIRUBIN,DIRECT 0.2 mg/dL (0.0-0.4); BILIRUBIN,TOTAL 0.5 mg/dL (0.2-1.3); BLOOD UREA NITROGEN 44 mg/dL (7-20); CALCIUM 9.8 mg/dL (8.4-10.2); CARBON DIOXIDE 31 mmol/L (22-30); CHLORIDE 100 mmol/L (98-107); CREATINE KINASE 88 U/L (30-135); GLUCOSE 190 mg/dL (75-110); POTASSIUM 4.3 mmol/L (3.6-5.0); TOTAL PROTEIN 7.7 g/dL (6.3-8.2)
--- NOTE | 2019-04-16 17:05 | ER Document Report ---
ED General - General Chief Complaint: Leg Pain Stated Complaint: LEG NUMBNESS Time Seen by Provider: 04/16/19 14:43 Primary Care Provider: ALE RODRIGUEZ MD [Primary Care Provider] - Follow up as needed Mode of Arrival: Wheelchair Notes: Pleasant 78-year-old female with history of PE on Eliquis, hypertension, diabetes presents to the emergency department with chief complaint of numbness in her bilateral feet and legs. She says this is a chronic problem but it got worse this morning. She says that bottom of her feet feel "heavy" and that she felt a "heaviness in my chest", similar to when someone eats too much and feels full. She denies any acute shortness of breath, nausea, chest pain, diaphoresis. Patient is able to ambulate. No other complaints TRAVEL OUTSIDE OF THE [place] IN LAST 30 DAYS: No - Related Data Allergies/Adverse Reactions: metronidazole [From Flagyl] Allergy (Verified 04/16/19 14:34) Metronidazole HCl [From Flagyl] Allergy (Verified 04/16/19 14:34) Past Medical History - General Information source: Patient, Relative - son - Social History Smoking Status: Never Smoker Chew tobacco use (# tins/day): No Frequency of alcohol use: None Drug Abuse: None Family History: Reviewed & Not Pertinent, CAD - Brother had a heart attack at 55 years of age. Patient has suicidal ideation: No Patient has homicidal ideation: No - Past Medical History Cardiac Medical History: Reports: Hx Congestive Heart Failure, Hx Hypertension Pulmonary Medical History: Reports: Hx COPD, Hx Pneumonia Endocrine Medical History: Reports: Hx Diabetes Mellitus Type 1, Hx Diabetes Mellitus Type 2 Renal/ Medical History: Denies: Hx Peritoneal Dialysis GI Medical History: Reports: Hx Gastroesophageal Reflux Disease Musculoskeletal Medical History: Reports Hx Arthritis Psychiatric Medical History: Denies: Hx Depression Past Surgical History: Reports: Hx Appendectomy, Hx Cardiac Surgery - tumor left ventricle, Hx Hysterectomy, Other - Heart surgery - Immunizations Hx Diphtheria, Pertussis, Tetanus Vaccination: No Hx Pneumococcal Vaccination: 10/12/05 Review of Systems - Review of Systems Constitutional: See HPI EENT: No symptoms reported Cardiovascular: See HPI Respiratory: See HPI Gastrointestinal: See HPI Genitourinary: No symptoms reported Female Genitourinary: No symptoms reported Musculoskeletal: No symptoms reported Skin: No symptoms reported Hematologic/Lymphatic: No symptoms reported Neurological/Psychological: See HPI Physical Exam - Vital signs Vitals: Temp Pulse Resp BP Pulse Ox 97.4 F 94 20 154/64 H 97 04/16/19 14:38 04/16/19 14:38 04/16/19 14:38 04/16/19 14:38 04/16/19 14:38 - Notes Notes: PHYSICAL EXAMINATION: Reviewed vital signs and charting by RN GENERAL: Alert, interacts well. No acute distress. HEAD: Normocephalic, atraumatic. EYES: Pupils equal and round. Extraocular movements intact. ENT: Oral mucosa moist, tongue midline. NECK: Full range of motion. Trachea midline. LUNGS: Clear to auscultation bilaterally, no wheezes, rales, or rhonchi. No respiratory distress. HEART: Regular rate and rhythm. 2/6 systolic murmur, 1+ bilateral pitting edema lower extremities ABDOMEN: soft, non-tender. No distention. Bowel sounds present EXTREMITIES: Moves all 4 extremities spontaneously, No cyanosis. PSYCH: Normal affect, normal mood. SKIN: Warm, dry, normal turgor. No rashes or lesions noted. Course - Re-evaluation Re-evalutation: 04/16/19 18:43 Patient overall well presenting with acute on chronic bilateral lower extremity edema numbness. All lab work within normal limits. Chest x-ray showed right lower lobe atelectasis versus scarring seen on previous x-ray. Briefly discussed with attending physician, Dr. Vidal, because patient's issues acute on chronic and there is no emergent condition at this time it is reasonable to discharge patient. She uses a walker at baseline. She is still able to use it up to and including her time in the emergency department. Stable for discharge 04/16/19 18:46 - Vital Signs Vital signs: Temp Pulse Resp BP Pulse Ox 97.4 F 94 20 154/64 H 97 04/16/19 14:38 04/16/19 14:38 04/16/19 14:38 04/16/19 14:38 04/16/19 14:38 - Laboratory Result Diagrams: 04/16/19 15:10 04/16/19 15:10 Laboratory results interpreted by me: 04/16/19 04/16/19 04/16/19 15:10 15:10 15:10 RDW 14.6 H Carbon Dioxide 31 H BUN 44 H Creatinine 1.38 H Est GFR ( Amer) 45 L Est GFR (Non-Af Amer) 37 L Glucose 190 H Magnesium 1.5 L Discharge - Discharge Clinical Impression: Bilateral leg numbness Condition: Good Disposition: HOME, SELF-CARE Additional Instructions: You are seen in emergency department this afternoon for leg numbness and a heavy feeling in the bottom of your feet. Because this is a chronic issue and it was slightly worse we are reassured with a negative work-up today and normal labs. This is all very reassuring. Please follow-up with Dr. Rodriguez Thursday morning. If you develop severe chest pain, acute shortness of breath, paralysis in either of your legs, or if any other concerning symptoms please merely return to the emergency department. Referrals: ALE RODRIGUEZ MD [Primary Care Provider] - 04/18/19
--- NOTE | 2019-04-16 19:17 | EKG REPORT ---
SEVERITY:- NORMAL ECG - SINUS RHYTHM : Confirmed by: Juan Manuel Gallegos 16-Apr-2019 19:15:47
[2019-04-16 20:22] VITALS: BP 148/73
== END 2019-04-16 20:23 | disposition home or self-care (01) ==
LOC: ER 14:33
DX: R20.0 Anesthesia of skin (principal); R60.9 Edema, unspecified; I50.9 Heart failure, unspecified; I11.0 Hypertensive heart disease with heart failure; J44.9 Chronic obstructive pulmonary disease, unspecified; E11.9 Type 2 diabetes mellitus without complications; Z90.710 Acquired absence of both cervix and uterus; Z79.01 Long term (current) use of anticoagulants
CPT/HCPCS: 93005; 99284; 36415; 82550; 83735; 85025; 80053; 84484; 71046; 93010; A9270

== ENCOUNTER → 2019-05-19 | Outpatient (CLI) | payer MEDICARE, OTHER ==
--- NOTE | 2019-05-22 18:34 | WOMENS IMAGING REPORT ---
EXAM DESCRIPTION: 3D SCREENING MAMMO BILAT COMPLETED DATE/TIME: 05/19/2019 2:34 pm REASON FOR STUDY: Z12.31 ENCOUNTER FOR SCREENING MAMMOGRAM FOR MALIGNANT NEOPLASM OF BREAST Z12.31 ENCNTR SCREEN MAMMOGRAM FOR MALIGNANT NEOPLASM OF JERRY COMPARISON: None. EXAM PARAMETERS: Views: Standard craniocaudal and mediolateral oblique views of each breast recorded using digital acquisition and breast tomosynthesis. Read with the assistance of CAD. .[facility] - [employer] A[employer] Version 9.2 LIMITATIONS: None. FINDINGS: No suspicious masses, suspicious calcifications or architectural distortion. No areas of c oncern. IMPRESSION: NEGATIVE MAMMOGRAM. BIRADS 1. BREAST DENSITY: b. There are scattered areas of fibroglandular density. BIRAD: ASSESSMENT: 1 NEGATIVE RECOMMENDATION: ROUTINE SCREENING COMMENT: The patient has been notified of the results by letter per MQSA requirements. Additional no tification policies are in place for contacting patient with suspicious or incomplete findings. Quality ID #225: The [employer] recommends an annual screening mammogram for women aged 40 years or over. This facility utilizes a reminder system to ensure that all patients receive reminder letters, and/or direct phone calls for appointments. This includes reminders for routine scr eening mammograms, diagnostic mammograms, or other Breast Imaging Interventions when appropriate. Th is patient will be placed in the appropriate reminder system. TECHNICAL DOCUMENTATION: FINDING NUMBER: (1) ASSESSMENT: (1) JOB ID: [id number] [employer]- All Rights Reserved Reading location - IP/workstation name: [email or web address]
== END ==
LOC: WI 14:12
PROVIDERS: ATTEND Internal Medicine
DX: Z12.31 Encounter for screening mammogram for malignant neoplasm of breast (principal)
CPT/HCPCS: 77063; 77067

== ENCOUNTER → 2020-05-21 | Outpatient (CLI) | payer MEDICARE, OTHER ==
--- NOTE | 2020-05-22 08:53 | WOMENS IMAGING REPORT ---
EXAM DESCRIPTION: 3D SCREENING MAMMO BILAT IMAGES COMPLETED DATE/TIME: 05/21/2020 4:08 pm REASON FOR STUDY: Z12.31 ENCOUNTER FOR SCREENING MAMMOGRAM FOR MALIGNANT NEOPLASM OF BREAST Z12.31 ENCNTR SCREEN MAMMOGRAM FOR MALIGNANT NEOPLASM OF JERRY COMPARISON: 2019 EXAM PARAMETERS: Views: Standard craniocaudal and mediolateral oblique views of each breast recorded using digital acquisition and breast tomosynthesis. Read with the assistance of CAD. .[facility] - [employer] Maintenance Supervisor Version 9.2 LIMITATIONS: None. FINDINGS: No suspicious masses, suspicious calcifications or architectural distortion. No areas of c oncern. IMPRESSION: NEGATIVE MAMMOGRAM. BIRADS 1. BREAST DENSITY: b. There are scattered areas of fibroglandular density. BIRAD: ASSESSMENT: 1 NEGATIVE RECOMMENDATION: ROUTINE SCREENING COMMENT: The patient has been notified of the results by letter per MQSA requirements. Additional no tification policies are in place for contacting patient with suspicious or incomplete findings. Quality ID #225: The [employer] recommends an annual screening mammogram for women aged 40 years or over. This facility utilizes a reminder system to ensure that all patients receive reminder letters, and/or direct phone calls for appointments. This includes reminders for routine scr eening mammograms, diagnostic mammograms, or other Breast Imaging Interventions when appropriate. Th is patient will be placed in the appropriate reminder system. TECHNICAL DOCUMENTATION: FINDING NUMBER: (1) ASSESSMENT: (1) JOB ID: [id number] [employer]- All Rights Reserved Reading location - IP/workstation name: [email or web address]
== END ==
LOC: WI 14:46
PROVIDERS: ATTEND Internal Medicine
DX: Z12.31 Encounter for screening mammogram for malignant neoplasm of breast (principal)
CPT/HCPCS: 77063; 77067